=== PATIENT | female | born 1965 | race Caucasian/White ===

== ENCOUNTER → 2016-11-16 | Outpatient (CLI) | payer BC ==
[2016-05-11 11:48] VITALS: BP 130/62
[2016-11-16 08:00] LABS: BASOPHILS # (AUTO) 0.1 X10^3/uL (0.0-0.1); BASOPHILS % (AUTO) 0.7 % (0.2-1.0); CREATININE,URINE 73.87 mg/dL (29-226); EOSINOPHILS # (AUTO) 0.3 x10^3/uL (0.0-0.2); EOSINOPHILS % (AUTO) 3.2 % (0.9-2.9); HEMATOCRIT 43.6 % (36.0-47.0); LYMPHOCYTES # (AUTO) 2.3 X10^3/uL (1.3-2.9); LYMPHOCYTES % (AUTO) 29.1 % (21.0-51.0); MEAN CORPUSCULAR HEMOGLOBIN 29.4 pg (27.0-34.0); MEAN CORPUSCULAR HGB CONC 34.4 g/dL (33.0-35.0); MEAN CORPUSCULAR VOLUME 85.4 fL (80.0-100.0); MONOCYTES # (AUTO) 0.5 x10^3/uL (0.3-0.8); MONOCYTES % (AUTO) 5.9 % (0.0-13.0); NEUTROPHILS # (AUTO) 4.8 x10^3/uL (2.2-4.8); NEUTROPHILS % (AUTO) 61.1 % (42.0-75.0); PLATELET COUNT 218 X10^3/uL (150.0-450.0); RED BLOOD COUNT 5.11 X10^6/uL (3.5-5.4); RED CELL DISTRIBUTION WIDTH 13.6 % (11.6-16.5); WHITE BLOOD COUNT 7.9 X10^3/uL (3.6-10.0)
[2016-11-16 08:18] LABS: ALANINE AMINOTRANSFERASE 20 Units/L (12-78); ALKALINE PHOSPHATASE 60 Units/L (46-116); ASPARTATE AMINO TRANSFERASE 17 Units/L (15-37); BLOOD UREA NITROGEN 11 mg/dL (7-18); CALCIUM 8.6 mg/dL (8.5-10.1); CARBON DIOXIDE 28.1 mmol/L (21-32); CHLORIDE 103 mmol/L (98-107); CHOL/HDL RATIO 5.4 (0.0-5.0); CHOLESTEROL 179 mg/dL (0-200); COR NA(FOR HYPERGLY) 144 mmol/L (136-145); CREATININE 0.61 mg/dL (0.55-1.02); GLUCOSE 206 mg/dL (65-99); HDL CHOLESTEROL 33 mg/dL (40-60); SODIUM 141 mmol/L (136-145); TOTAL PROTEIN 7.5 g/dL (6.4-8.2); TRIGLYCERIDES 221 mg/dL (0-150); eGFR BLACK RACES > 60 (>60); eGFR NON BLACK RACES > 60 (>60)
== END ==
LOC: LAB 07:29
PROVIDERS: ATTEND Nurse Practitioner Family
DX: E11.65 Type 2 diabetes mellitus with hyperglycemia (principal)
CPT/HCPCS: 36415; 80053; 80061; 82043; 83036; 85025

== ENCOUNTER → 2017-02-12 | Outpatient (CLI) | payer BC ==
[2016-05-11 11:48] VITALS: BP 130/62
--- NOTE | 2017-02-18 16:03 | MG ---
HISTORY: SCREENING Comparison: None FINDINGS: Bilateral CC and MLO projections of the right and left breast were obtained. Scattered fibroglandula r tissue is seen to be present. No significant architectural distortion, mass or clustered microcalc ifications can be observed to suggest malignancy. No skin thickening or nipple retraction is appreci ated. No pathological lymphadenopathy can be identified. IMPRESSION: NO RADIOGRAPHIC EVIDENCE OF MALIGNANCY. ACR CATEGORY I - NEGATIVE EXAM. FOLLOW-UP EXAM 1 YEAR. Diagnostic CAD was utilized and reviewed. * 0 (ZERO) - ASSESSMENT INCOMPLETE; ADDITIONAL IMAGING IS NEEDED. * 1/ (ONE) - NEGATIVE. * 2/II (TWO) - BENIGN FINDINGS. * 3/III (THREE) - PROBABLY BENIGN FINDING; SHORT INTERVAL FOLLOW-UP SUGGESTED. * 4/IV (FOUR) - SUSPICIOUS ABNORMALITY; BIOPSY SHOULD BE CONSIDERED. * 5/V - HIGHLY SUSPICIOUS OF MALIGNANCY; BIOPSY SHOULD BE PERFORMED. A NEGATIVE X-RAY REPORT SHOULD NOT DELAY BIOPSY IF A DOMINANT OR CLINICALLY SUSPICIOUS MASS IS PRESENT; 4 TO 8 PERCENT OF CANCERS ARE NOT IDENTIFIED BY X-RAY. A NEGA TIVE REPORT MAY REINFORCE THE CLINICAL IMPRESSION. ADENOSIS AND DENSE BREASTS MAY OBSCURE AN UNDERLY ING NEOPLASM. Reported By:
== END ==
LOC: RAD 09:47
PROVIDERS: ATTEND Nurse Practitioner Family
DX: Z12.31 Encounter for screening mammogram for malignant neoplasm of breast (principal)
CPT/HCPCS: 77067

== ENCOUNTER 2020-01-04 10:01 | Inpatient (IN) ==
[2020-01-04 10:05] VITALS: BMI 27.3
--- NOTE | 2020-01-04 10:13 | DR.FBACK ---
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 Also fever and decreased taste. Chief Complaint:: PT C/O PAIN WHEN SHE SITS AND STANDS , AND PAIN TO TO HER MED BACK THAT RADIATES TO HER LEGS, FEVER OF 101.0 AT HOME , DRY COUGH AND LOSS HER SENCE OF SMELL ..BR COVID-19 Coronavirus risk:travel/contact w/high risk person: Yes Coronavirus symptoms experienced: Fever Reviewed Nurses Notes Review: Yes Source History Provided: Patient Mode of Arrival Mode of Arrival: Wheelchair Timing Onset of Chief Complaint: 12/31/19 Duration Duration: Constant How lon Duration: Days Location Back Pain Location: Right (leg) and BACK Radiation To: Right Severity Severity: Moderate Quality Quality: Aching Context Onset: Spontaneous Circumstance: Spontaneous Modifying Factors Worsened By: Movement Associated Signs and Symptoms Back Pain Symptoms: Fever Numbness: None Weakness: None PMH PMH Past Medical History: Yes Past Medical History: Diabetes Past Surgical History: Yes Surgical History: Hysterectomy Family History History of Family Medical Conditions: Yes Family Medical History: Diabetes Mellitus, Cancer, [place], Heart Failure and Hypertension Social History Does patient currently use any type of tobacco product: No Type of Tobacco Use: None Does any household member use tobacco: No Alcohol Use: None Do you use any recreational Drugs:: No Lives With: Family Lives Where: Home Infectious screening In the last 2 months have you had wt loss of >10#?: NO Have you had fever, night sweats or hemotysis?: No Have you traveled outside the country in the last 6 months?: No Isolation: Droplet ROS Review of Systems Constitutional: Fever and Other (decreased taste) Eyes: No Symptoms Reported ENTM: No Symptoms Reported Respiratoy: No Symptoms Reported Cardiovascular: No Symptoms Reported Gastrointestinal/Abdominal: No Symptoms Reported Genitourinary: No Symptoms Reported Neurological: No Symptoms Reported Musculoskeletal: Back Pain Integumentary: No Symptoms Reported Hematologic/Lymphatic: No Symptoms Reported Endocrine: No Symptoms Reported Psychiatric: Depression All Other Systems: Reviewed and Negative PE Vitals Vital Signs: Temp Pulse Resp BP Pulse Ox 01/04/20 10:30 104 H 17 140/72 94 L 01/04/20 10:15 105 H 20 94 L 01/04/20 10:06 113 H 95 01/04/20 10:02 98.7 F 104 H 20 184/79 98 05/11/16 11:43 130/62 General Limitations: No Limitations General Appearance: Alert and In No Apparent Distress Head Head Exam: Normal Inspection, Atraumatic and Normocephalic Eyes Eye exam: Normal Appearance and EOMI ENT ENT Exam: Normal Exam Chest Chest Inspection: Normal Inspection Respiratory Respiratory Exam: Normal Lung Sounds Bilat; negative Accessory Muscle Use Respiratory Exam: Bilateral: Clear to Auscultation Cardiovascular Cardiovascular Exam: Tachycardia Abdominal Exam Abdominal Exam: Normal Inspection Genitourinary External Exam: Female: Normal External Exam and Deferred : Speculum Exam (Female): Deferred : Bimanual Exam (female): Deferred Extremities Extremities Exam: Full ROM Back Back Exam: Normal Inspection Neurological Neurological Exam: Alert, Oriented X3 and CN II-XII Intact Psychiatric Psychiatric Exam: Depressed Skin Skin Exam: Normal Color ROR Labs Reviewed Result Diagrams: 01/04/20 10:35 01/04/20 10:35 Laboratory: Specimen Type Clean catch urine 01/04/20 10:12 Urine Color Yellow (YELLOW) 01/04/20 10:12 Urine Appearance Clear (CLEAR) 01/04/20 10:12 Urine pH 6.0 (5.0 - 8.0) 01/04/20 10:12 Ur Specific [place] 1.015 (1.000-1.030) 01/04/20 10:12 Urine Protein Negative (NEGATIVE) 01/04/20 10:12 Urine Glucose (UA) 4+ (NEGATIVE) 01/04/20 10:12 Urine Ketones 4+ (NEGATIVE) 01/04/20 10:12 Urine Occult Blood Negative (NEGATIVE) 01/04/20 10:12 Urine Nitrite Negative (NEGATIVE) 01/04/20 10:12 Urine Bilirubin Negative (NEGATIVE) 01/04/20 10:12 Urine Urobilinogen Normal (NORMAL) 01/04/20 10:12 Ur Leukocyte Esterase Negative (NEGATIVE) 01/04/20 10:12 XRAY XRAY Interpreted by: Radiologist X-ray Results: CHEST: no acute pulmonary process Opioid Opioid Risk Tool Total: 0 Total Score Risk Category: Low Risk Copyright: Go RIVERA predicting aberrant behaviors
[2020-01-04 10:25] LABS: BILIRUBIN,URINE NEGATIVE (NEGATIVE); BLOOD/HEMOGLOBIN,URINE NEGATIVE (NEGATIVE); GLUCOSE, URINE 4+ (NEGATIVE); KETONES,URINE 4+ (NEGATIVE); LEUKOCYTE ESTERASE ,URINE NEGATIVE (NEGATIVE); NITRITES,URINE NEGATIVE (NEGATIVE); PROTEIN,URINE NEGATIVE (NEGATIVE); UROBILINOGEN,URINE NORMAL (NORMAL)
[2020-01-04] MEDS ORDERED: TORADOL 30 MG VIAL IVP ONE (10:32)
[2020-01-04 10:34] LABS: APPEARANCE,URINE CLEAR (CLEAR); COLOR,URINE YELLOW (YELLOW)
--- NOTE | 2020-01-04 10:38 | RAD ---
HISTORYFEVER, DRY COUGH, BACK PAINSTUDYCHEST, 1 VIEWCOMPARISONNoneTECHNIQUEAP view of the chestFINDINGSCardiac and mediastinal contours appear normal. The lungs are clear. No pleural effusion or pneumothorax.IMPRESSIONNo acute pulmonary process.Electronically signed by: Gumaro Mantilla (Jan 04, 2020 10:38:31)
[2020-01-04] MEDS ORDERED: TORADOL 30 MG VIAL ONE (10:39)
--- NOTE | 2020-01-04 10:48 | DR.FBACK ---
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 Chief Complaint:: PT C/O PAIN WHEN SHE SITS AND STANDS , AND PAIN TO TO HER MED BACK THAT RADIATES TO HER LEGS, FEVER OF 101.0 AT HOME , DRY COUGH AND LOSS HER SENCE OF SMELL ..BR COVID-19 Coronavirus risk:travel/contact w/high risk person: Yes Has patient experienced Coronavirus symptoms: Yes Coronavirus symptoms experienced: Fever Source History Provided: Patient Mode of Arrival Mode of Arrival: Wheelchair Timing Onset of Chief Complaint: 12/31/19 Duration Duration: Constant How lon Duration: Days Location Back Pain Location: Right (leg) and BACK Context Circumstance: Spontaneous Associated Signs and Symptoms Back Pain Symptoms: Fever Numbness: None Weakness: None PMH PMH Past Medical History: Yes Past Medical History: Diabetes Past Surgical History: Yes Surgical History: Hysterectomy Family History History of Family Medical Conditions: Yes Family Medical History: Diabetes Mellitus, Cancer, [place], Heart Failure and Hypertension Social History Does patient currently use any type of tobacco product: No Type of Tobacco Use: None Does any household member use tobacco: No Alcohol Use: None Do you use any recreational Drugs:: No Lives With: Family Lives Where: Home Travel Risk Coronavirus risk:travel/contact w/high risk person: Yes Has patient experienced Coronavirus symptoms: Yes Coronavirus symptoms experienced: Fever Infectious screening In the last 2 months have you had wt loss of >10#?: NO Have you had fever, night sweats or hemotysis?: No Have you traveled outside the country in the last 6 months?: No Isolation: Droplet PE Vitals Vital Signs: Temp Pulse Resp BP Pulse Ox 01/04/20 12:30 94 H 21 120/64 98 01/04/20 12:15 93 H 18 96 01/04/20 12:00 93 H 13 120/60 95 01/04/20 11:45 96 H 21 93 L 01/04/20 11:30 100 H 20 110/53 95 01/04/20 11:15 95 H 19 94 L 01/04/20 11:00 96 H 20 124/58 93 L 01/04/20 10:45 97 H 23 94 L 01/04/20 10:44 20 01/04/20 10:30 104 H 17 140/72 94 L 01/04/20 10:15 105 H 20 94 L 01/04/20 10:06 113 H 95 01/04/20 10:02 98.7 F 104 H 20 184/79 98 05/11/16 11:43 130/62 ROR Labs Reviewed Result Diagrams: 01/04/20 10:35 01/04/20 10:35 Laboratory: WBC 4.0 X10^3/uL (3.6-10.0) 01/04/20 10:35 RBC 5.08 X10^6/uL (3.5-5.4) 01/04/20 10:35 Hgb 14.9 g/dL (12.0-16.0) 01/04/20 10:35 Hct 44.4 % (36.0-47.0) 01/04/20 10:35 MCV 87.4 fL (80.0-100.0) 01/04/20 10:35 MCH 29.3 pg (27.0-34.0) 01/04/20 10:35 MCHC 33.6 g/dL (33.0-35.0) 01/04/20 10:35 RDW 13.5 % (11.6-16.5) 01/04/20 10:35 Plt Count 153 X10^3/uL (150.0-450.0) 01/04/20 10:35 MPV 8.9 fL (7.4-11.0) 01/04/20 10:35 Neut % (Auto) 67.3 % (42.0-75.0) 01/04/20 10:35 Lymph % (Auto) 23.2 % (21.0-51.0) 01/04/20 10:35 [place] % (Auto) 8.8 % (0.0-13.0) 01/04/20 10:35 Eos % (Auto) 0.3 % (0.9-2.9) L 01/04/20 10:35 Baso % (Auto) 0.4 % (0.2-1.0) 01/04/20 10:35 Neut # (Auto) 2.7 x10^3/uL (2.2-4.8) 01/04/20 10:35 Lymph # (Auto) 0.9 X10^3/uL (1.3-2.9) L 01/04/20 10:35 [place] # (Auto) 0.4 x10^3/uL (0.3-0.8) 01/04/20 10:35 Eos # (Auto) 0.0 x10^3/uL (0.0-0.2) 01/04/20 10:35 Baso # (Auto) 0.0 X10^3/uL (0.0-0.1) 01/04/20 10:35 Absolute Nucleated RBC 0.2 /100WBC 01/04/20 10:35 APTT 31.9 SECONDS (22.9-36.5) 01/04/20 10:35 PTT Comment - 01/04/20 10:35 Sodium 135 mmol/L (136-145) L 01/04/20 10:35 Corrected Sodium 140 mmol/L (136-145) 01/04/20 10:35 Potassium 4.0 mmol/L (3.5-5.1) 01/04/20 10:35 Chloride 99 mmol/L (98-107) 01/04/20 10:35 Carbon Dioxide 17.5 mmol/L (21-32) L 01/04/20 10:35 BUN 7 mg/dL (7-18) 01/04/20 10:35 Creatinine 0.63 mg/dL (0.55-1.02) 01/04/20 10:35 Est GFR (MDRD) Af Amer > 60 (>60) 01/04/20 10:35 Est GFR (MDRD) Non-Af > 60 (>60) 01/04/20 10:35 Glucose 303 mg/dL (65-99) H 01/04/20 10:35 Calcium 8.7 mg/dL (8.5-10.1) 01/04/20 10:35 Creatine Kinase 21 Units/L (26-192) L 01/04/20 10:35 CK-MB (CK-2) < 1.0 ng/mL (0-4.0) 01/04/20 10:35 CK/CKMB % Calc 4.8 % (<4) 01/04/20 10:35 Troponin I < 0.02 ng/mL (0-1.5) 01/04/20 10:35 Specimen Type Clean catch urine 01/04/20 10:12 Urine Color Yellow (YELLOW) 01/04/20 10:12 Urine Appearance Clear (CLEAR) 01/04/20 10:12 Urine pH 6.0 (5.0 - 8.0) 01/04/20 10:12 Ur Specific [place] 1.015 (1.000-1.030) 01/04/20 10:12 Urine Protein Negative (NEGATIVE) 01/04/20 10:12 Urine Glucose (UA) 4+ (NEGATIVE) 01/04/20 10:12 Urine Ketones 4+ (NEGATIVE) 01/04/20 10:12 Urine Occult Blood Negative (NEGATIVE) 01/04/20 10:12 Urine Nitrite Negative (NEGATIVE) 01/04/20 10:12 Urine Bilirubin Negative (NEGATIVE) 01/04/20 10:12 Urine Urobilinogen Normal (NORMAL) 01/04/20 10:12 Ur Leukocyte Esterase Negative (NEGATIVE) 01/04/20 10:12 Acetone, Semi-Quant Negative (NEGATIVE) 01/04/20 10:35 EKG Rate: 99 [place]: Normal Rhythm: NSR Block: None Hypertrophy: None ST: Nonsp Opioid Opioid Risk Tool Age (Jozef box if 16-45): No History of Preadolescent Sexual Abuse: No Total: 0 Total Score Risk Category: Low Risk Copyright: Go RIVERA predicting aberrant behaviors Diagnosis Discharge Problem: Acute viral syndrome, Hyperglycemia Instructions Instructions: Hyperglycemia Viral Illness, Adult Forms: Precautions for COVID19 Patient Portal Social Distancing
[2020-01-04 10:49] LABS: BASOPHILS % (AUTO) 0.4 % (0.2-1.0); EOSINOPHILS % (AUTO) 0.3 % (0.9-2.9); HEMATOCRIT 44.4 % (36.0-47.0); HEMOGLOBIN 14.9 g/dL (12.0-16.0); LYMPHOCYTES # (AUTO) 0.9 X10^3/uL (1.3-2.9); LYMPHOCYTES % (AUTO) 23.2 % (21.0-51.0); MEAN CORPUSCULAR HEMOGLOBIN 29.3 pg (27.0-34.0); MEAN CORPUSCULAR HGB CONC 33.6 g/dL (33.0-35.0); MEAN CORPUSCULAR VOLUME 87.4 fL (80.0-100.0); MEAN PLATELET VOLUME 8.9 fL (7.4-11.0); MONOCYTES # (AUTO) 0.4 x10^3/uL (0.3-0.8); MONOCYTES % (AUTO) 8.8 % (0.0-13.0); NEUTROPHILS # (AUTO) 2.7 x10^3/uL (2.2-4.8); NEUTROPHILS % (AUTO) 67.3 % (42.0-75.0); PLATELET COUNT 153 X10^3/uL (150.0-450.0); RED BLOOD COUNT 5.08 X10^6/uL (3.5-5.4); RED CELL DISTRIBUTION WIDTH 13.5 % (11.6-16.5)
[2020-01-04 10:53] LABS: BLOOD UREA NITROGEN 7 mg/dL (7-18); CALCIUM 8.7 mg/dL (8.5-10.1); CARBON DIOXIDE 17.5 mmol/L (21-32); CHLORIDE 99 mmol/L (98-107); COR NA(FOR HYPERGLY) 140 mmol/L (136-145); CREATININE 0.63 mg/dL (0.55-1.02); SODIUM 135 mmol/L (136-145); eGFR NON BLACK RACES > 60 (>60)
[2020-01-04 11:11] LABS: CKMB % 4.8 % (<4); CREATINE KINASE 21 Units/L (26-192); CREATINE KINASE MB < 1.0 ng/mL (0-4.0); TROPONIN I < 0.02 ng/mL (0-1.5)
[2020-01-04] MEDS ORDERED: NS 500 ML IV 1,000 ML IV ONE (11:31)
[2020-01-04] MEDS ORDERED: NS 1000 ML 1,000 ML ONE (11:46)
[2020-01-04] MEDS ORDERED: DEMEROL INJ IM ONE (23:20)
--- NOTE | 2020-01-04 23:20 | DR.FBACK ---
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 Chief Complaint:: PT C/O PAIN WHEN SHE SITS AND STANDS , AND PAIN TO TO HER MED BACK THAT RADIATES TO HER LEGS, FEVER OF 101.0 AT HOME , DRY COUGH AND LOSS HER SENCE OF SMELL ..BR COVID-19 Coronavirus risk:travel/contact w/high risk person: Yes Has patient experienced Coronavirus symptoms: Yes Coronavirus symptoms experienced: Fever Source History Provided: Patient Mode of Arrival Mode of Arrival: Wheelchair Timing Onset of Chief Complaint: 12/31/19 Duration Duration: Constant How lon Duration: Days Location Back Pain Location: Right (leg) and BACK Context Circumstance: Spontaneous Associated Signs and Symptoms Back Pain Symptoms: Fever Numbness: None Weakness: None PMH PMH Past Medical History: Yes Past Medical History: Diabetes Past Surgical History: Yes Surgical History: Hysterectomy Family History History of Family Medical Conditions: Yes Family Medical History: Diabetes Mellitus, Cancer, [place], Heart Failure and Hypertension Social History Does patient currently use any type of tobacco product: No Type of Tobacco Use: None Does any household member use tobacco: No Alcohol Use: None Do you use any recreational Drugs:: No Lives With: Family Lives Where: Home Travel Risk Coronavirus risk:travel/contact w/high risk person: Yes Has patient experienced Coronavirus symptoms: Yes Coronavirus symptoms experienced: Fever Infectious screening In the last 2 months have you had wt loss of >10#?: NO Have you had fever, night sweats or hemotysis?: No Have you traveled outside the country in the last 6 months?: No Isolation: Droplet PE Vitals Vital Signs: Temp Pulse Resp BP Pulse Ox 01/04/20 23:30 110 H 22 138/64 99 01/04/20 23:28 20 01/04/20 12:30 94 H 21 120/64 98 01/04/20 12:15 93 H 18 96 01/04/20 12:00 93 H 13 120/60 95 01/04/20 11:45 96 H 21 93 L 01/04/20 11:30 100 H 20 110/53 95 01/04/20 11:15 95 H 19 94 L 01/04/20 11:00 96 H 20 124/58 93 L 01/04/20 10:45 97 H 23 94 L 01/04/20 10:44 20 01/04/20 10:30 104 H 17 140/72 94 L 01/04/20 10:15 105 H 20 94 L 01/04/20 10:06 113 H 95 01/04/20 10:02 98.7 F 104 H 20 184/79 98 05/11/16 11:43 130/62 COURSE Treatment Treatment: 2315: patient returns to ER with complaint of Low back pain radiating to right leg. No numbness. Had relief earlier when seen in ER but pain returned. Will get CT scan abdo/pelvis. 0045: case discussed with Dr. Lance will admit to treat for Covid 19 Pneumonia and DKA ROR Labs Reviewed Result Diagrams: 01/04/20 23:38 01/04/20 23:38 Laboratory: WBC 5.3 X10^3/uL (3.6-10.0) 01/04/20 23:38 RBC 5.07 X10^6/uL (3.5-5.4) 01/04/20 23:38 Hgb 15.1 g/dL (12.0-16.0) 01/04/20 23:38 Hct 45.5 % (36.0-47.0) 01/04/20 23:38 MCV 89.7 fL (80.0-100.0) 01/04/20 23:38 MCH 29.8 pg (27.0-34.0) 01/04/20 23:38 MCHC 33.2 g/dL (33.0-35.0) 01/04/20 23:38 RDW 14.0 % (11.6-16.5) 01/04/20 23:38 Plt Count 168 X10^3/uL (150.0-450.0) 01/04/20 23:38 MPV 9.6 fL (7.4-11.0) 01/04/20 23:38 Neut % (Auto) 83.3 % (42.0-75.0) H 01/04/20 23:38 Lymph % (Auto) 11.6 % (21.0-51.0) L 01/04/20 23:38 [place] % (Auto) 4.9 % (0.0-13.0) 01/04/20 23:38 Eos % (Auto) 0.0 % (0.9-2.9) L 01/04/20 23:38 Baso % (Auto) 0.2 % (0.2-1.0) 01/04/20 23:38 Neut # (Auto) 4.4 x10^3/uL (2.2-4.8) 01/04/20 23:38 Lymph # (Auto) 0.6 X10^3/uL (1.3-2.9) L 01/04/20 23:38 [place] # (Auto) 0.3 x10^3/uL (0.3-0.8) 01/04/20 23:38 Eos # (Auto) 0.0 x10^3/uL (0.0-0.2) 01/04/20 23:38 Baso # (Auto) 0.0 X10^3/uL (0.0-0.1) 01/04/20 23:38 Absolute Nucleated RBC 0.1 /100WBC 01/04/20 23:38 APTT 31.9 SECONDS (22.9-36.5) 01/04/20 10:35 PTT Comment - 01/04/20 10:35 Sodium 135 mmol/L (136-145) L 01/04/20 23:38 Corrected Sodium 140 mmol/L (136-145) 01/04/20 23:38 Potassium 4.7 mmol/L (3.5-5.1) 01/04/20 23:38 Chloride 99 mmol/L (98-107) 01/04/20 23:38 Carbon Dioxide 15.1 mmol/L (21-32) L 01/04/20 23:38 BUN 12 mg/dL (7-18) 01/04/20 23:38 Creatinine 0.79 mg/dL (0.55-1.02) 01/04/20 23:38 Est GFR (MDRD) Af Amer > 60 (>60) 01/04/20 23:38 Est GFR (MDRD) Non-Af > 60 (>60) 01/04/20 23:38 Glucose 311 mg/dL (65-99) H 01/04/20 23:38 Calcium 8.7 mg/dL (8.5-10.1) 01/04/20 23:38 Creatine Kinase 21 Units/L (26-192) L 01/04/20 10:35 CK-MB (CK-2) < 1.0 ng/mL (0-4.0) 01/04/20 10:35 CK/CKMB % Calc 4.8 % (<4) 01/04/20 10:35 Troponin I < 0.02 ng/mL (0-1.5) 01/05/20 00:01 C-Reactive Protein 56.10 mg/L (0-3.0) H 01/04/20 23:38 Specimen Type Clean catch urine 01/04/20 10:12 Urine Color Yellow (YELLOW) 01/04/20 10:12 Urine Appearance Clear (CLEAR) 01/04/20 10:12 Urine pH 6.0 (5.0 - 8.0) 01/04/20 10:12 Ur Specific [place] 1.015 (1.000-1.030) 01/04/20 10:12 Urine Protein Negative (NEGATIVE) 01/04/20 10:12 Urine Glucose (UA) 4+ (NEGATIVE) 01/04/20 10:12 Urine Ketones 4+ (NEGATIVE) 01/04/20 10:12 Urine Occult Blood Negative (NEGATIVE) 01/04/20 10:12 Urine Nitrite Negative (NEGATIVE) 01/04/20 10:12 Urine Bilirubin Negative (NEGATIVE) 01/04/20 10:12 Urine Urobilinogen Normal (NORMAL) 01/04/20 10:12 Ur Leukocyte Esterase Negative (NEGATIVE) 01/04/20 10:12 Acetone, Semi-Quant Small (NEGATIVE) H 01/05/20 00:01 XRAY XRAY Interpreted by: Radiologist X-ray Results: CT Abdo/pelvis: lung base with Covid 19 pneumonia apppearance Opioid Opioid Risk Tool Age (Jozef box if 16-45): No History of Preadolescent Sexual Abuse: No Total: 0 Total Score Risk Category: Low Risk Copyright: Go RIVERA predicting aberrant behaviors Diagnosis Discharge Problem: Acute viral syndrome, Hyperglycemia Instructions Instructions: Hyperglycemia Viral Illness, Adult Forms: Precautions for COVID19 Patient Portal Social Distancing
[2020-01-04] MEDS ORDERED: DEMEROL INJ ONE (23:25)
[2020-01-04] MEDS ORDERED: NS 500 ML IV 500 ML IV ONE (23:39)
[2020-01-04 23:51] LABS: BASOPHILS % (AUTO) 0.2 % (0.2-1.0); HEMATOCRIT 45.5 % (36.0-47.0); HEMOGLOBIN 15.1 g/dL (12.0-16.0); LYMPHOCYTES # (AUTO) 0.6 X10^3/uL (1.3-2.9); LYMPHOCYTES % (AUTO) 11.6 % (21.0-51.0); MEAN CORPUSCULAR HEMOGLOBIN 29.8 pg (27.0-34.0); MEAN CORPUSCULAR HGB CONC 33.2 g/dL (33.0-35.0); MEAN CORPUSCULAR VOLUME 89.7 fL (80.0-100.0); MEAN PLATELET VOLUME 9.6 fL (7.4-11.0); MONOCYTES # (AUTO) 0.3 x10^3/uL (0.3-0.8); MONOCYTES % (AUTO) 4.9 % (0.0-13.0); NEUTROPHILS # (AUTO) 4.4 x10^3/uL (2.2-4.8); NEUTROPHILS % (AUTO) 83.3 % (42.0-75.0); PLATELET COUNT 168 X10^3/uL (150.0-450.0); RED BLOOD COUNT 5.07 X10^6/uL (3.5-5.4); WHITE BLOOD COUNT 5.3 X10^3/uL (3.6-10.0)
[2020-01-04 23:54] LABS: BLOOD UREA NITROGEN 12 mg/dL (7-18); CALCIUM 8.7 mg/dL (8.5-10.1); CARBON DIOXIDE 15.1 mmol/L (21-32); CHLORIDE 99 mmol/L (98-107); COR NA(FOR HYPERGLY) 140 mmol/L (136-145); CREATININE 0.79 mg/dL (0.55-1.02); SODIUM 135 mmol/L (136-145); eGFR NON BLACK RACES > 60 (>60)
[2020-01-05] MEDS ORDERED: NS 1000 ML 1,000 ML IV ONE (00:06)
[2020-01-05] MEDS ORDERED: HumuLIN R IV ONE ×2 (00:07→01:22)
[2020-01-05] MEDS ORDERED: NS 1000 ML 1,000 ML ONE (00:11)
[2020-01-05] MEDS ORDERED: HumuLIN R ONE ×4 (00:12→11:59)
--- NOTE | 2020-01-05 00:19 | CT ---
STUDY: CT ABDOMEN AND PELVIS WITHOUT IV CONTRASTCOMPARISON: NoneTECHNIQUE: Axial images were obtained of the abdomen and pelvis without IV contrast. Sagittal and coronal reformatted images were provided. All images were reviewed in a variety of windows and levels.RADIATION REDUCTION TECHNIQUE: Automated exposure control, adjustment of the mA or kV according to patient size, or iterative reconstruction techniques were used.HISTORY: PT C/O PAIN WHEN SHE SITS AND STANDS, AND PAIN TO TO HER MED BACK THAT RADIATES TO HER LEGS, FEVER OF 101.0 AT HOME, DRY COUGH AND LOSS HER SENCE OF SMELLFINDINGS:Please note that lack of IV contrast does limit evaluation of the soft tissues and vascular detail.The visualized lower lung zones demonstrates scattered foci of peripheral based ground-glass opacities in the right lower lung zone which has imaging features that are commonly seen in patients with COVID-19. the heart size is within normal limits. There is no evidence of a pericardial effusion.The liver, spleen, pancreas, adrenal glands, and kidneys are grossly unremarkable. Gallstones are noted. The patient is status post hysterectomy.There is no evidence of stones or signs of obstructive uropathy.The stomach, small bowel, and colon are grossly unremarkable. A few scattered diverticula are seen without evidence of diverticulitis. There are no inflammatory changes in the right lower quadrant to suggest secondary signs of acute appendicitis. The appendix is not visualized on this exam.There is no evidence of retroperitoneal or mesenteric lymphadenopathy.The visualized bones demonstrate degenerative changes. There are no concerning lytic or blastic lesions identified.IMPRESSION:1. The above findings demonstrate COMMON CT imaging features of COVID-19 pneumonia in the visualized portions of the lower lung zones. However, differential diagnosis should include, but is not limited to, influenza pneumonia, organizing pneumonia, or possible drug toxicity. Clinical correlation with laboratory viral testing may be obtained as clinically indicated. Reference: Greene et al. Radiology. . Gallstones are noted3. The appendix is not visualized. There are no secondary signs of acute appendicitis.Electronically signed by: Martin Rivas (Jan 05, 2020 00:17:54)
[2020-01-05] MEDS ORDERED: ZOFRAN INJ 4 MG VIAL ONE (00:31)
[2020-01-05] MEDS ORDERED: ZOFRAN INJ 4 MG VIAL IVP ONE (00:41)
[2020-01-05] MEDS ORDERED: HumuLIN R SC PRN (00:58)
[2020-01-05] MEDS ORDERED: LOVENOX INJ 30 MG SYR SC SCH (01:00)
[2020-01-05] MEDS ORDERED: DECADRON TAB PO SCH (01:00)
[2020-01-05] MEDS ORDERED: HumuLIN R SUBCUT PRN (01:26)
[2020-01-05] MEDS ORDERED: LOVENOX INJ 30 MG SYR SC ONE (02:40)
[2020-01-05] MEDS ORDERED: DECADRON TAB ONE (02:40)
[2020-01-05] MEDS ORDERED: NS 100 ML IV 100 ML IV ONE (02:44)
[2020-01-05] MEDS: NS 1000 ML 1,000 ML IV SCH (02:52)
[2020-01-05] MEDS: ASCORBIC ACID INJ MULTI-DOSE VIAL 1,500 MG in NS 100 ML IV 100 ML IV SCH ×4 (02:55→21:20)
[2020-01-05] MEDS: VITAMIN D (1.25MG) PO SCH ×2 (03:25→10:09)
[2020-01-05 06:08] LABS: ALANINE AMINOTRANSFERASE 20 Units/L (12-78); ALBUMIN 3.4 g/dL (3.4-5.0); ALKALINE PHOSPHATASE 85 Units/L (46-116); ASPARTATE AMINO TRANSFERASE 25 Units/L (15-37); BLOOD UREA NITROGEN 12 mg/dL (7-18); CALCIUM 8.3 mg/dL (8.5-10.1); CHLORIDE 101 mmol/L (98-107); COR NA(FOR HYPERGLY) 137 mmol/L (136-145); CREATININE 0.66 mg/dL (0.55-1.02); SODIUM 134 mmol/L (136-145); TOTAL PROTEIN 7.4 g/dL (6.4-8.2); eGFR NON BLACK RACES > 60 (>60)
[2020-01-05 06:14] LABS: BASOPHILS % (AUTO) 0.2 % (0.2-1.0); HEMATOCRIT 42.4 % (36.0-47.0); HEMOGLOBIN 14.4 g/dL (12.0-16.0); LYMPHOCYTES # (AUTO) 0.7 X10^3/uL (1.3-2.9); LYMPHOCYTES % (AUTO) 13.4 % (21.0-51.0); MEAN CORPUSCULAR HEMOGLOBIN 29.8 pg (27.0-34.0); MEAN CORPUSCULAR VOLUME 87.7 fL (80.0-100.0); MONOCYTES # (AUTO) 0.2 x10^3/uL (0.3-0.8); MONOCYTES % (AUTO) 4.8 % (0.0-13.0); NEUTROPHILS # (AUTO) 4.2 x10^3/uL (2.2-4.8); NEUTROPHILS % (AUTO) 81.6 % (42.0-75.0); PLATELET COUNT 153 X10^3/uL (150.0-450.0); RED BLOOD COUNT 4.83 X10^6/uL (3.5-5.4); RED CELL DISTRIBUTION WIDTH 13.6 % (11.6-16.5); WHITE BLOOD COUNT 5.1 X10^3/uL (3.6-10.0)
[2020-01-05] MEDS ORDERED: VITAMIN A PO SCH (09:00)
[2020-01-05] MEDS ORDERED: REMDESIVIR (INVESTIGATIONAL DRUG GS-5734) 200 MG in NS 250 ML IV 250 ML IV NR (09:00)
[2020-01-05 09:14] LABS: ABG BASE EXCESS -15.5 mmol/L (-2.0-2.0); ABG HCO3 10.6 mmol/L (22-26)
[2020-01-05] MEDS: TRICOR TAB 160 MG PO SCH (10:08)
[2020-01-05] MEDS: PLAQUENIL PO SCH ×2 (10:08→21:20)
[2020-01-05] MEDS: ZINC SULFATE PO SCH ×2 (10:09→21:20)
[2020-01-05] MEDS: LOVENOX INJ 30 MG SYR SC SCH ×2 (10:24→21:20)
[2020-01-05 11:26] LABS: ALANINE AMINOTRANSFERASE 20 Units/L (12-78); ALBUMIN 3.6 g/dL (3.4-5.0); ALKALINE PHOSPHATASE 92 Units/L (46-116); ASPARTATE AMINO TRANSFERASE 23 Units/L (15-37); BLOOD UREA NITROGEN 12 mg/dL (7-18); CALCIUM 8.4 mg/dL (8.5-10.1); CARBON DIOXIDE 17.9 mmol/L (21-32); CHLORIDE 101 mmol/L (98-107); COR NA(FOR HYPERGLY) 137 mmol/L (136-145); CREATININE 0.81 mg/dL (0.55-1.02); SODIUM 133 mmol/L (136-145); TOTAL PROTEIN 7.9 g/dL (6.4-8.2); eGFR NON BLACK RACES > 60 (>60)
[2020-01-05] MEDS: ZOSYN VIAL 4.5 GRAMS 4.5 G in NS 100 ML IV + SPIKE MINIBAG* 100 ML IV SCH ×4 (12:55→21:45)
[2020-01-05] MEDS: ZITHROMAX INJ 500 MG VIAL 500 MG in NS 250 ML IV 250 ML IV SCH (12:56)
--- NOTE | 2020-01-05 18:01 | DR.H&P ---
H&P - History & Physical for Day of: H&P Date: 01/04/20 - Chief Complaint Chief Complaint: FEVER, BACK PAIN, LOSS OF SENSE OF TASTE, FATIGUE - History of Present Illness History of Present Illness: PT IS 54 WF ER ADMISSION AFTER COMPLAINING OF INTRACTABLE LOWER BACK PAIN. PT STATES SHE HAS HAD FEVER A HOME 101. PT WAS CONCERNED ABOUT COVID EXPOSURE LAST SATURDAY AND STARTED Z PACK ON SATURDAY. PT CO SHE THOUGHT SHE HAD KIDNEY STONE. PT HAS PMH OF HTN, CAD, DM. PT HAD PNEUMONIA ON ABD CT AND COVID POSITIVE WITH DKA DX FROM ER. PT ADMITTED TO ICU FOR TREATMENT OF ACUTE ILLNESS. - Past Medical History Past Medical History: Anxiety, Coronary Artery Disease, Diabetes, Hypertension, Kidney Stones - Past Surgical History Surgical History: Angioplasty/Stents, Hysterectomy - Family History Family Medical History: Diabetes Mellitus, Cancer, [place] - Social History Does patient currently use any type of tobacco product: No Have you used tobacco products in the last 12 months: No Type of Tobacco Use: None Does any household member use tobacco: No Alcohol Use: None Drug Use: None - Medications Home Medications: Sulfa (Sulfonamide Antibiotics) [SULFA] Allergy (Verified 01/04/20 10:05) CONTINUE taking the following medications aspirin [Aspir-81] 81 mg PO DAILY 01/05/20 [History] azithromycin 250 mg PO DAILY 01/05/20 [History] dapagliflozin [Farxiga] 10 mg PO DAILY 01/05/20 [History] dexamethasone 6 mg PO BID 01/05/20 [History] diazepam 5 mg PO DAILY PRN 01/05/20 [History] fish,bora,flax oils-om3,6,9no1 [Price 3-6-9] 1 cap PO DAILY 01/05/20 [History] metformin 10,000 mg PO BID 01/05/20 [History] metoprolol succinate 12.5 mg PO DAILY 01/05/20 [History] omeprazole 20 mg PO DAILY 01/05/20 [History] - Review of Systems Constitutional: Weakness, Malaise Eyes: No Symptoms Reported ENT: No Symptoms Reported Respiratory: SOB with Excertion Cardiovascular: Chest Pain Gastrointestinal: Abdominal Pain Genitourinary: Frequency Musculoskeletal: Back Pain Skin: No Symptoms Reported Neurological: No Symptoms Reported - Physical Exam Vital Signs: Temperature 98.4 F Pulse Rate [Apical] 101 Pulse Rate 86 Respiratory Rate 20 Blood Pressure [Right Arm] 116/64 Blood Pressure 127/60 O2 Sat by Pulse Oximetry 99 Oriented: Normal Eyes: Normal Ear: Normal Nose: Normal Throat: Dry Respiratory: RLL Diminished Cardiovascular: Normal. negative: Edema : Normal Auscultation: Bowel Sounds: Normal Palpation: Normal Tenderness: Normal Skin: Decreased Turgur Musculoskeletal: Back:Thoracic, Back:Lumbar Psychiatric: Anxiety Affect: Anxious Speech Pattern: Clear, Appropriate - Assessment/Plan (1) Pneumonia due to 2019 novel coronavirus Status: Acute Plan: ADMIT ICU. INSULIN, BS PER PROTOCOL. AM ACETONE, REPEAT AM LABS. EKG, SUPPLEMENTAL O2, REMDESIVIR, BLOOD CULTURES. IV HYDRATION, STRICT I& OS. VERIFY HOME MEDICATION, CONVALESCENT PLASMA, ZITHROMAX AND ZOSYN, AM ABG (2) DKA (diabetic ketoacidoses) Status: Acute (3) CAD (coronary artery disease) Status: Acute - Allergies Allergies/Adverse Reactions: Allergies Allergy/AdvReac Type Severity Reaction Status Date / Time Sulfa (Sulfonamide Allergy Verified 01/04/20 10:05 Antibiotics) [SULFA]
[2020-01-05 18:22] LABS: BILIRUBIN,URINE NEGATIVE (NEGATIVE); BLOOD/HEMOGLOBIN,URINE NEGATIVE (NEGATIVE); GLUCOSE, URINE 4+ (NEGATIVE); KETONES,URINE 4+ (NEGATIVE); LEUKOCYTE ESTERASE ,URINE NEGATIVE (NEGATIVE); NITRITES,URINE NEGATIVE (NEGATIVE); PROTEIN,URINE 1+ (NEGATIVE); UROBILINOGEN,URINE NORMAL (NORMAL)
[2020-01-05 18:40] LABS: APPEARANCE,URINE CLEAR (CLEAR); COLOR,URINE YELLOW (YELLOW)
[2020-01-05 18:41] LABS: BACTERIA,URINE NEGATIVE /HPF (NEGATIVE); RBC,URINE NONE SEEN /HPF (0-3); SQUAMOUS EPITHELIAL CELL,UR RARE /HPF (NEGATIVE)
[2020-01-05] MEDS ORDERED: SNACK - Diabetic Appropriate PO SCH ×2 (20:00)
[2020-01-05] MEDS: SNACK - Diabetic Appropriate PO SCH (22:22)
[2020-01-06] MEDS ORDERED: NORCO 5/325 MG TAB PO PRN (00:08)
[2020-01-06] MEDS ORDERED: NORCO 5/325 MG TAB ONE (00:13)
[2020-01-06] MEDS: NS 1000 ML 1,000 ML IV SCH (00:42)
[2020-01-06] MEDS: ASCORBIC ACID INJ MULTI-DOSE VIAL 1,500 MG in NS 100 ML IV 100 ML IV SCH ×4 (02:03→20:25)
[2020-01-06 05:01] LABS: BASOPHILS % (AUTO) 0.3 % (0.2-1.0); EOSINOPHILS % (AUTO) 0.1 % (0.9-2.9); HEMATOCRIT 39.7 % (36.0-47.0); HEMOGLOBIN 13.4 g/dL (12.0-16.0); LYMPHOCYTES # (AUTO) 1.2 X10^3/uL (1.3-2.9); LYMPHOCYTES % (AUTO) 23.7 % (21.0-51.0); MEAN CORPUSCULAR HEMOGLOBIN 29.3 pg (27.0-34.0); MEAN CORPUSCULAR HGB CONC 33.7 g/dL (33.0-35.0); MEAN PLATELET VOLUME 9.8 fL (7.4-11.0); MONOCYTES # (AUTO) 0.4 x10^3/uL (0.3-0.8); MONOCYTES % (AUTO) 6.9 % (0.0-13.0); NEUTROPHILS # (AUTO) 3.5 x10^3/uL (2.2-4.8); PLATELET COUNT 170 X10^3/uL (150.0-450.0); RED BLOOD COUNT 4.57 X10^6/uL (3.5-5.4); RED CELL DISTRIBUTION WIDTH 13.9 % (11.6-16.5); WHITE BLOOD COUNT 5.1 X10^3/uL (3.6-10.0)
[2020-01-06 05:08] LABS: ALANINE AMINOTRANSFERASE 16 Units/L (12-78); ALKALINE PHOSPHATASE 75 Units/L (46-116); ASPARTATE AMINO TRANSFERASE 18 Units/L (15-37); BLOOD UREA NITROGEN 12 mg/dL (7-18); CALCIUM 7.9 mg/dL (8.5-10.1); CARBON DIOXIDE 21.2 mmol/L (21-32); CHLORIDE 104 mmol/L (98-107); COR CA(FOR HYPOALB) 8.7 mg/dL (8.5-10.1); COR NA(FOR HYPERGLY) 138 mmol/L (136-145); CREATININE 0.63 mg/dL (0.55-1.02); SODIUM 136 mmol/L (136-145); TOTAL PROTEIN 6.4 g/dL (6.4-8.2); eGFR NON BLACK RACES > 60 (>60)
[2020-01-06] MEDS: ZOSYN VIAL 4.5 GRAMS 4.5 G in NS 100 ML IV + SPIKE MINIBAG* 100 ML IV SCH ×3 (06:35→21:35)
--- NOTE | 2020-01-06 09:17 | RAD ---
HISTORYFOLLOW-UP PNEUMONIA, COVID-19STUDYCHEST AP [id number]/31/2020FINDINGSThe heart is within normal limits in size. The robert are normal. The lungs are well inflated. There is a question of an early right basilar lung infiltrate representing a change from the prior examination. Follow-up of this area is recommended. There is also a question of some widening of the upper mediastinum. Upright PA and lateral chest examination is recommended for further evaluation. This finding persists, CT chest with contrast may be required. No pleural effusions are identified. Bony thorax is unremarkable.IMPRESSIONSuggestion of interval development of a small right basilar lung infiltrate since the prior examinationQuestion widening of the upper mediastinum. See discussion and recommendation as aboveElectronically signed by: EZEQUIEL CM (Jan 06, 2020 09:16:49)
[2020-01-06 10:01] LABS: ABG HCO3 19.5 mmol/L (22-26)
[2020-01-06] MEDS: DECADRON TAB PO SCH (10:56)
[2020-01-06] MEDS: PLAQUENIL PO SCH ×2 (10:57→20:26)
[2020-01-06] MEDS: ZITHROMAX INJ 500 MG VIAL 500 MG in NS 250 ML IV 250 ML IV SCH (10:57)
[2020-01-06] MEDS: TRICOR TAB 160 MG PO SCH (10:57)
[2020-01-06] MEDS: ZINC SULFATE PO SCH ×2 (10:58→20:26)
[2020-01-06] MEDS: LOVENOX INJ 30 MG SYR SC SCH ×2 (10:58→20:24)
[2020-01-06] MEDS: REMDESIVIR (INVESTIGATIONAL DRUG GS-5734) 100 MG in NS 250 ML IV 250 ML IV SCH (10:59)
[2020-01-06] MEDS: PriLOSEC PO SCH (14:00)
[2020-01-06] MEDS ORDERED: K-RIDER 10 MEQ/NS 100 ML 10 MEQ/100 ML BAG IV PRN (17:26)
[2020-01-06] MEDS ORDERED: MICRO K EXTEN CAP 10 MEQ PO PRN (17:26)
[2020-01-06] MEDS ORDERED: KLOR-CON PO PRN (17:26)
[2020-01-06] MEDS ORDERED: POTASSIUM CHL 60 MEQ/NS 0.45% 500 ML IV PRN (17:26)
[2020-01-06] MEDS ORDERED: POTASSIUM CHLORIDE LIQ 20 MEQ UDC PO PRN (17:26)
[2020-01-06] MEDS ORDERED: POTASSIUM CHL 40 MEQ/NS 0.45% 500 ML IV PRN (17:26)
[2020-01-06] MEDS: ROBITUSSIN DM PO PRN (18:30)
[2020-01-06] MEDS ORDERED: SNACK - Diabetic Appropriate PO SCH (20:00)
[2020-01-06] MEDS: SNACK - Diabetic Appropriate PO SCH (20:24)
[2020-01-06] MEDS: K-DUR TAB 20 MEQ PO PRN (20:38)
[2020-01-06] MEDS ORDERED: NS 250 ML IV 250 ML IV ONE (23:58)
[2020-01-07] MEDS: MAGNESIUM SULFATE 1 GRAM/100 mL PREMIX 1 GM/100 ML BAG IV PRN ×2 (01:42→03:30)
[2020-01-07] MEDS: NS 1000 ML 1,000 ML IV SCH (02:39)
[2020-01-07] MEDS: ASCORBIC ACID INJ MULTI-DOSE VIAL 1,500 MG in NS 100 ML IV 100 ML IV SCH ×4 (04:00→21:50)
[2020-01-07 04:40] LABS: ABG ALLEN TEST POS; ABG BASE EXCESS -1.7 mmol/L (-2.0-2.0); ABG HCO3 21.5 mmol/L (22-26)
[2020-01-07 06:00] LABS: ALANINE AMINOTRANSFERASE 14 Units/L (12-78); ALBUMIN 2.6 g/dL (3.4-5.0); ALKALINE PHOSPHATASE 61 Units/L (46-116); ASPARTATE AMINO TRANSFERASE 19 Units/L (15-37); BLOOD UREA NITROGEN 9 mg/dL (7-18); CALCIUM 7.8 mg/dL (8.5-10.1); CARBON DIOXIDE 23.2 mmol/L (21-32); CHLORIDE 104 mmol/L (98-107); COR CA(FOR HYPOALB) 8.9 mg/dL (8.5-10.1); COR NA(FOR HYPERGLY) 140 mmol/L (136-145); CREATININE 0.48 mg/dL (0.55-1.02); MAGNESIUM 2.2 mg/dL (1.7-2.9); SODIUM 137 mmol/L (136-145); TOTAL PROTEIN 5.9 g/dL (6.4-8.2); eGFR NON BLACK RACES > 60 (>60)
[2020-01-07 06:10] LABS: BASOPHILS % (AUTO) 0.3 % (0.2-1.0); EOSINOPHILS % (AUTO) 0.1 % (0.9-2.9); HEMATOCRIT 35.5 % (36.0-47.0); HEMOGLOBIN 12.2 g/dL (12.0-16.0); LYMPHOCYTES # (AUTO) 1.2 X10^3/uL (1.3-2.9); LYMPHOCYTES % (AUTO) 41.7 % (21.0-51.0); MEAN CORPUSCULAR HEMOGLOBIN 29.3 pg (27.0-34.0); MEAN CORPUSCULAR HGB CONC 34.4 g/dL (33.0-35.0); MEAN CORPUSCULAR VOLUME 85.3 fL (80.0-100.0); MEAN PLATELET VOLUME 8.8 fL (7.4-11.0); MONOCYTES # (AUTO) 0.4 x10^3/uL (0.3-0.8); MONOCYTES % (AUTO) 13.1 % (0.0-13.0); NEUTROPHILS # (AUTO) 1.2 x10^3/uL (2.2-4.8); NEUTROPHILS % (AUTO) 44.8 % (42.0-75.0); PLATELET COUNT 142 X10^3/uL (150.0-450.0); RED BLOOD COUNT 4.16 X10^6/uL (3.5-5.4); RED CELL DISTRIBUTION WIDTH 13.6 % (11.6-16.5); WHITE BLOOD COUNT 2.8 X10^3/uL (3.6-10.0)
[2020-01-07] MEDS: ZOSYN VIAL 4.5 GRAMS 4.5 G in NS 100 ML IV + SPIKE MINIBAG* 100 ML IV SCH ×3 (06:24→21:53)
[2020-01-07] MEDS: HumuLIN R SUBCUT PRN ×4 (06:25→22:45)
[2020-01-07] MEDS: LOVENOX INJ 30 MG SYR SC SCH ×2 (09:52→21:50)
[2020-01-07] MEDS: PLAQUENIL PO SCH ×2 (09:54→21:52)
[2020-01-07] MEDS: TRICOR TAB 160 MG PO SCH (09:55)
[2020-01-07] MEDS: ZINC SULFATE PO SCH ×2 (09:55→21:52)
[2020-01-07] MEDS: PriLOSEC PO SCH (09:55)
[2020-01-07] MEDS: DECADRON TAB PO SCH (09:56)
[2020-01-07] MEDS: VITAMIN A PO SCH (09:57)
[2020-01-07] MEDS: REMDESIVIR (INVESTIGATIONAL DRUG GS-5734) 100 MG in NS 250 ML IV 250 ML IV SCH (09:58)
[2020-01-07] MEDS: VITAMIN D3 125 mcg (5,000 UNITS) PO SCH (09:58)
[2020-01-07] MEDS: ROBITUSSIN DM PO PRN (10:01)
[2020-01-07] MEDS: ZITHROMAX INJ 500 MG VIAL 500 MG in NS 250 ML IV 250 ML IV SCH (12:44)
[2020-01-07] MEDS ORDERED: CONSULT PHARMACY - ANTIBIOTIC XX SCH (13:00)
[2020-01-07] MEDS: LEVAQUIN TAB 500 MG PO SCH (15:50)
[2020-01-07] MEDS: SNACK - Diabetic Appropriate PO SCH (21:00)
[2020-01-08] MEDS: ASCORBIC ACID INJ MULTI-DOSE VIAL 1,500 MG in NS 100 ML IV 100 ML IV SCH ×4 (03:09→20:57)
[2020-01-08] MEDS: NS 1000 ML 1,000 ML IV SCH ×2 (03:09→21:34)
[2020-01-08 05:19] LABS: BASOPHILS % (AUTO) 0.3 % (0.2-1.0); EOSINOPHILS % (AUTO) 0.3 % (0.9-2.9); HEMATOCRIT 34.7 % (36.0-47.0); HEMOGLOBIN 11.9 g/dL (12.0-16.0); LYMPHOCYTES # (AUTO) 1.3 X10^3/uL (1.3-2.9); LYMPHOCYTES % (AUTO) 44.8 % (21.0-51.0); MEAN CORPUSCULAR HEMOGLOBIN 29.5 pg (27.0-34.0); MEAN CORPUSCULAR HGB CONC 34.1 g/dL (33.0-35.0); MEAN CORPUSCULAR VOLUME 86.3 fL (80.0-100.0); MEAN PLATELET VOLUME 9.4 fL (7.4-11.0); MONOCYTES # (AUTO) 0.3 x10^3/uL (0.3-0.8); MONOCYTES % (AUTO) 11.3 % (0.0-13.0); NEUTROPHILS # (AUTO) 1.3 x10^3/uL (2.2-4.8); NEUTROPHILS % (AUTO) 43.3 % (42.0-75.0); PLATELET COUNT 154 X10^3/uL (150.0-450.0); RED BLOOD COUNT 4.02 X10^6/uL (3.5-5.4); RED CELL DISTRIBUTION WIDTH 13.2 % (11.6-16.5)
[2020-01-08 05:34] LABS: ALANINE AMINOTRANSFERASE 13 Units/L (12-78); ALBUMIN 2.5 g/dL (3.4-5.0); ALKALINE PHOSPHATASE 58 Units/L (46-116); ASPARTATE AMINO TRANSFERASE 17 Units/L (15-37); BLOOD UREA NITROGEN 9 mg/dL (7-18); CALCIUM 7.8 mg/dL (8.5-10.1); CARBON DIOXIDE 24.6 mmol/L (21-32); CHLORIDE 105 mmol/L (98-107); COR NA(FOR HYPERGLY) 142 mmol/L (136-145); CREATININE 0.49 mg/dL (0.55-1.02); SODIUM 139 mmol/L (136-145); TOTAL PROTEIN 5.8 g/dL (6.4-8.2); eGFR NON BLACK RACES > 60 (>60)
[2020-01-08] MEDS: ZOSYN VIAL 4.5 GRAMS 4.5 G in NS 100 ML IV + SPIKE MINIBAG* 100 ML IV SCH ×3 (05:59→21:33)
[2020-01-08] MEDS: HumuLIN R SUBCUT PRN ×3 (06:15→20:59)
--- NOTE | 2020-01-08 06:25 | RAD ---
HISTORYPNEUMONIA, COVIDSTUDYCHEST, 1 [id number]/02/2020TECHNIQUEAP view of the chestFINDINGSCardiac and mediastinal contours appear similar more confluent airspace disease such as in the left lower lung and peripheral left midlung. No pleural effusion or pneumothorax.IMPRESSIONMild worsening in scattered bilateral airspace opacities consistent with pneumoniaElectronically signed by: Gumaro Mantilla (Jan 08, 2020 06:24:35)
[2020-01-08] MEDS: DECADRON TAB PO SCH (10:08)
[2020-01-08] MEDS: PLAQUENIL PO SCH ×2 (10:09→20:59)
[2020-01-08] MEDS: LEVAQUIN TAB 500 MG PO SCH (10:09)
[2020-01-08] MEDS: K-DUR TAB 20 MEQ PO PRN (10:11)
[2020-01-08] MEDS: PriLOSEC PO SCH (10:12)
[2020-01-08] MEDS: LOVENOX INJ 30 MG SYR SC SCH ×2 (10:12→20:58)
[2020-01-08] MEDS: REMDESIVIR (INVESTIGATIONAL DRUG GS-5734) 100 MG in NS 250 ML IV 250 ML IV SCH (10:13)
[2020-01-08] MEDS: TRICOR TAB 160 MG PO SCH (10:13)
[2020-01-08] MEDS: VITAMIN A PO SCH (10:14)
[2020-01-08] MEDS: ZINC SULFATE PO SCH ×2 (10:14→20:59)
[2020-01-08] MEDS: VITAMIN D3 125 mcg (5,000 UNITS) PO SCH (10:14)
[2020-01-08] MEDS: ZITHROMAX INJ 500 MG VIAL 500 MG in NS 250 ML IV 250 ML IV SCH (10:15)
[2020-01-08] MEDS: ROBITUSSIN DM PO PRN (18:09)
[2020-01-08] MEDS: SNACK - Diabetic Appropriate PO SCH (20:57)
[2020-01-09] MEDS: NS 1000 ML 1,000 ML IV SCH (00:08)
[2020-01-09] MEDS: ASCORBIC ACID INJ MULTI-DOSE VIAL 1,500 MG in NS 100 ML IV 100 ML IV SCH ×2 (02:24→10:18)
[2020-01-09 05:42] LABS: BASOPHILS % (AUTO) 0.2 % (0.2-1.0); EOSINOPHILS % (AUTO) 0.5 % (0.9-2.9); HEMATOCRIT 36.5 % (36.0-47.0); HEMOGLOBIN 12.4 g/dL (12.0-16.0); LYMPHOCYTES # (AUTO) 1.7 X10^3/uL (1.3-2.9); LYMPHOCYTES % (AUTO) 44.2 % (21.0-51.0); MEAN CORPUSCULAR HEMOGLOBIN 29.4 pg (27.0-34.0); MEAN CORPUSCULAR HGB CONC 34.1 g/dL (33.0-35.0); MEAN CORPUSCULAR VOLUME 86.4 fL (80.0-100.0); MONOCYTES # (AUTO) 0.4 x10^3/uL (0.3-0.8); MONOCYTES % (AUTO) 9.2 % (0.0-13.0); NEUTROPHILS # (AUTO) 1.8 x10^3/uL (2.2-4.8); NEUTROPHILS % (AUTO) 45.9 % (42.0-75.0); PLATELET COUNT 174 X10^3/uL (150.0-450.0); RED BLOOD COUNT 4.22 X10^6/uL (3.5-5.4); RED CELL DISTRIBUTION WIDTH 13.1 % (11.6-16.5); WHITE BLOOD COUNT 3.9 X10^3/uL (3.6-10.0)
[2020-01-09] MEDS: ZOSYN VIAL 4.5 GRAMS 4.5 G in NS 100 ML IV + SPIKE MINIBAG* 100 ML IV SCH (05:44)
[2020-01-09 05:51] LABS: ALANINE AMINOTRANSFERASE 15 Units/L (12-78); ALBUMIN 2.7 g/dL (3.4-5.0); ALKALINE PHOSPHATASE 62 Units/L (46-116); ASPARTATE AMINO TRANSFERASE 16 Units/L (15-37); BLOOD UREA NITROGEN 10 mg/dL (7-18); CALCIUM 8.4 mg/dL (8.5-10.1); CARBON DIOXIDE 29.4 mmol/L (21-32); CHLORIDE 103 mmol/L (98-107); COR CA(FOR HYPOALB) 9.4 mg/dL (8.5-10.1); COR NA(FOR HYPERGLY) 143 mmol/L (136-145); SODIUM 139 mmol/L (136-145); TOTAL PROTEIN 6.1 g/dL (6.4-8.2); eGFR NON BLACK RACES > 60 (>60)
[2020-01-09] MEDS: HumuLIN R SUBCUT PRN ×2 (06:29→12:26)
[2020-01-09] MEDS: ZITHROMAX INJ 500 MG VIAL 500 MG in NS 250 ML IV 250 ML IV SCH (10:17)
[2020-01-09] MEDS: REMDESIVIR (INVESTIGATIONAL DRUG GS-5734) 100 MG in NS 250 ML IV 250 ML IV SCH (10:18)
[2020-01-09] MEDS: TRICOR TAB 160 MG PO SCH (10:19)
[2020-01-09] MEDS: LEVAQUIN TAB 500 MG PO SCH (10:19)
[2020-01-09] MEDS: VITAMIN D3 125 mcg (5,000 UNITS) PO SCH (10:19)
[2020-01-09] MEDS: ZINC SULFATE PO SCH (10:20)
[2020-01-09] MEDS: PriLOSEC PO SCH (10:21)
[2020-01-09] MEDS: DECADRON TAB PO SCH (10:21)
[2020-01-09] MEDS: PLAQUENIL PO SCH (10:22)
[2020-01-09] MEDS: K-DUR TAB 20 MEQ PO PRN (10:22)
[2020-01-09] MEDS: VITAMIN A PO SCH (10:22)
[2020-01-09] MEDS: LOVENOX INJ 30 MG SYR SC SCH (10:24)
--- NOTE | 2020-01-09 10:42 | W.DIS.FURT ---
Summary of Discharge Discharge Summary of Date Date of Exam: 01/09/20 Admission Date Date of Admission: 01/05/20 Admission Diagnosis Hospital Course: Pt is a 54 yo f admitted for COVID-19 pneumonia and DKA. Her hospital course/treatments included IV antibiotics(Azithromycin, Zosyn, Levaquin), respiratory therapy, bronchodilators, supplemental oxygen, IV Remedesivir, convalescent plasma, hydroxychloroquine, and decadron. Pt responded well to treatments and did not require any supplemental O2 on day of discharge. Her diabetic ketoacidosis also resolved after receiving IVF and SSI. On day of discharge pt was sitting in recliner without oxygen, feeling well, without any concerns. Labs/imaging: Wbc 3.9, Hgb 12.4, Plt 174, Na 139, K 3.4, Cr 0.60, Gluc 258. Pt discharged home in stable condition with instructions to complete Levaquin course prescribed and to resume oral hypoglycemics. Instructed to follow up with pcp in 3-5 days. Vital Signs: Vital Signs (72 hours) 01/06/20 11:00 01/06/20 12:00 01/06/20 13:00 Temperature 98.6 F Pulse Rate [Apical] 97 H 101 H 105 H Respiratory Rate 25 H 27 H 24 Blood Pressure [Right Arm] 104/53 107/56 124/60 O2 Sat by Pulse Oximetry 98 97 99 01/06/20 14:00 01/06/20 15:00 01/06/20 16:00 Temperature 98.5 F Pulse Rate [Apical] 100 H 98 H 97 H Respiratory Rate 25 H 23 23 Blood Pressure [Right Arm] 112/51 110/63 104/57 O2 Sat by Pulse Oximetry 94 L 95 94 L 01/06/20 17:00 01/06/20 18:00 01/06/20 19:00 Temperature Pulse Rate [Apical] 92 H 95 H 82 Respiratory Rate 22 29 H 25 H Blood Pressure [Right Arm] 106/56 108/61 119/57 O2 Sat by Pulse Oximetry 96 96 100 01/06/20 20:00 01/06/20 21:00 01/06/20 22:00 Temperature 99.2 F Pulse Rate [Apical] 77 74 79 Respiratory Rate 26 H 21 23 Blood Pressure [Right Arm] 106/58 104/53 111/53 O2 Sat by Pulse Oximetry 97 97 98 01/06/20 23:00 01/07/20 00:00 01/07/20 01:00 Temperature 98.3 F Pulse Rate [Apical] 84 80 80 Respiratory Rate 23 22 21 Blood Pressure [Right Arm] 103/59 109/59 100/51 O2 Sat by Pulse Oximetry 97 95 96 01/07/20 02:00 01/07/20 03:00 01/07/20 04:00 Temperature 97.9 F Pulse Rate [Apical] 79 77 64 Respiratory Rate 24 20 24 Blood Pressure [Right Arm] 99/54 90/51 102/57 O2 Sat by Pulse Oximetry 96 95 95 01/07/20 05:00 01/07/20 06:00 01/07/20 07:00 Temperature Pulse Rate [Apical] 77 75 84 Respiratory Rate 22 24 24 Blood Pressure [Right Arm] 89/50 102/60 94/53 O2 Sat by Pulse Oximetry 95 97 100 01/07/20 08:00 01/07/20 09:00 01/07/20 10:00 Temperature 98.2 F Pulse Rate [Apical] 86 93 H 87 Respiratory Rate 17 21 20 Blood Pressure [Right Arm] 112/57 116/56 108/53 O2 Sat by Pulse Oximetry 97 100 96 01/07/20 11:00 01/07/20 12:00 01/07/20 13:00 Temperature 98.3 F Pulse Rate [Apical] 82 84 83 Respiratory Rate 18 18 18 Blood Pressure [Right Arm] 101/53 105/56 106/56 O2 Sat by Pulse Oximetry 97 96 95 01/07/20 14:00 01/07/20 15:00 01/07/20 16:00 Temperature 97.8 F Pulse Rate [Apical] 87 89 82 Respiratory Rate 18 18 20 Blood Pressure [Right Arm] 122/56 117/57 112/55 O2 Sat by Pulse Oximetry 96 98 96 01/07/20 17:00 01/07/20 18:00 01/07/20 19:00 Temperature Pulse Rate [Apical] 83 84 86 Respiratory Rate 20 18 18 Blood Pressure [Right Arm] 117/65 125/60 128/65 O2 Sat by Pulse Oximetry 96 94 L 96 01/07/20 20:00 01/07/20 21:00 01/07/20 22:00 Temperature 98.1 F Pulse Rate [Apical] 89 95 H 75 Respiratory Rate 20 22 18 Blood Pressure [Right Arm] 125/57 118/85 132/62 O2 Sat by Pulse Oximetry 95 94 L 96 01/07/20 23:00 01/08/20 00:00 01/08/20 01:00 Temperature 98.8 F Pulse Rate [Apical] 74 75 72 Respiratory Rate 18 18 22 Blood Pressure [Right Arm] 128/66 121/58 115/55 O2 Sat by Pulse Oximetry 98 94 L 93 L 01/08/20 02:00 01/08/20 03:00 01/08/20 04:00 Temperature 98.8 F Pulse Rate [Apical] 79 78 79 Respiratory Rate 18 20 18 Blood Pressure [Right Arm] 109/61 112/51 109/56 O2 Sat by Pulse Oximetry 93 L 95 96 01/08/20 05:00 01/08/20 06:00 01/08/20 07:00 Temperature 98.6 F Pulse Rate [Apical] 68 84 73 Respiratory Rate 20 20 20 Blood Pressure [Right Arm] 109/55 98/55 99/55 O2 Sat by Pulse Oximetry 93 L 93 L 95 01/08/20 08:00 01/08/20 09:00 01/08/20 10:00 Temperature Pulse Rate [Apical] 85 82 84 Respiratory Rate 18 19 18 Blood Pressure [Right Arm] 122/59 106/53 100/50 O2 Sat by Pulse Oximetry 97 96 97 01/08/20 11:00 01/08/20 12:00 01/08/20 13:00 Temperature Pulse Rate [Apical] 73 80 81 Respiratory Rate 18 19 18 Blood Pressure [Right Arm] 116/55 98/52 108/54 O2 Sat by Pulse Oximetry 94 L 97 98 01/08/20 14:00 01/08/20 15:00 01/08/20 16:00 Temperature 98.6 F Pulse Rate [Apical] 79 86 78 Respiratory Rate 17 19 18 Blood Pressure [Right Arm] 113/60 113/56 112/55 O2 Sat by Pulse Oximetry 99 95 93 L 01/08/20 17:00 01/08/20 18:00 01/08/20 19:00 Temperature Pulse Rate [Apical] 96 H 92 H 93 H Respiratory Rate 19 18 17 Blood Pressure [Right Arm] 112/63 115/65 124/61 O2 Sat by Pulse Oximetry 96 95 94 L 01/08/20 20:00 01/08/20 21:00 01/08/20 22:00 Temperature 99.0 F Pulse Rate [Apical] 74 73 74 Respiratory Rate 17 18 18 Blood Pressure [Right Arm] 125/58 122/66 110/58 O2 Sat by Pulse Oximetry 94 L 95 93 L 01/08/20 23:00 01/09/20 00:00 01/09/20 01:00 Temperature 98.2 F Pulse Rate [Apical] 72 73 67 Respiratory Rate 18 19 16 Blood Pressure [Right Arm] 115/59 124/74 124/62 O2 Sat by Pulse Oximetry 95 94 L 97 01/09/20 02:00 01/09/20 03:00 01/09/20 04:00 Temperature 98.2 F Pulse Rate [Apical] 71 62 64 Respiratory Rate 18 17 17 Blood Pressure [Right Arm] 126/56 127/59 120/59 O2 Sat by Pulse Oximetry 95 95 94 L 01/09/20 05:00 01/09/20 06:00 01/09/20 07:00 Temperature Pulse Rate [Apical] 66 66 62 Respiratory Rate 18 16 18 Blood Pressure [Right Arm] 116/58 104/51 124/62 O2 Sat by Pulse Oximetry 95 94 L 93 L 01/09/20 08:00 Temperature 98.2 F Pulse Rate [Apical] 71 Respiratory Rate 20 Blood Pressure [Right Arm] 115/59 O2 Sat by Pulse Oximetry 96 Labs: Laboratory Last Values WBC 3.9 X10^3/uL (3.6-10.0) 01/09/20 04:25 RBC 4.22 X10^6/uL (3.5-5.4) 01/09/20 04:25 Hgb 12.4 g/dL (12.0-16.0) 01/09/20 04:25 Hct 36.5 % (36.0-47.0) 01/09/20 04:25 MCV 86.4 fL (80.0-100.0) 01/09/20 04:25 MCH 29.4 pg (27.0-34.0) 01/09/20 04:25 MCHC 34.1 g/dL (33.0-35.0) 01/09/20 04:25 RDW 13.1 % (11.6-16.5) 01/09/20 04:25 Plt Count 174 X10^3/uL (150.0-450.0) 01/09/20 04:25 MPV 9.0 fL (7.4-11.0) 01/09/20 04:25 Neut % (Auto) 45.9 % (42.0-75.0) 01/09/20 04:25 Lymph % (Auto) 44.2 % (21.0-51.0) 01/09/20 04:25 [place] % (Auto) 9.2 % (0.0-13.0) 01/09/20 04:25 Eos % (Auto) 0.5 % (0.9-2.9) L 01/09/20 04:25 Baso % (Auto) 0.2 % (0.2-1.0) 01/09/20 04:25 Neut # (Auto) 1.8 x10^3/uL (2.2-4.8) L 01/09/20 04:25 Lymph # (Auto) 1.7 X10^3/uL (1.3-2.9) 01/09/20 04:25 [place] # (Auto) 0.4 x10^3/uL (0.3-0.8) 01/09/20 04:25 Eos # (Auto) 0.0 x10^3/uL (0.0-0.2) 01/09/20 04:25 Baso # (Auto) 0.0 X10^3/uL (0.0-0.1) 01/09/20 04:25 Absolute Nucleated RBC 0.2 /100WBC 01/09/20 04:25 APTT 31.9 SECONDS (22.9-36.5) 01/04/20 10:35 PTT Comment - 01/04/20 10:35 Sample Site Rrad 01/07/20 04:30 ABG pH 7.450 (7.35-7.45) 01/07/20 04:30 ABG pCO2 31.0 mmHg (35.0-45.0) L 01/07/20 04:30 ABG pO2 74.0 mmHg (80.0-100.0) L 01/07/20 04:30 ABG HCO3 21.5 mmol/L (22-26) L 01/07/20 04:30 ABG O2 Saturation 95.0 % (90-100) 01/07/20 04:30 ABG Base Excess -1.7 mmol/L (-2.0-2.0) 01/07/20 04:30 Bob Test Pos 01/07/20 04:30 A-a Gradient 37.0 mmHg 01/07/20 04:30 FiO2 21.0 01/07/20 04:30 Blood Gas Comments Gabriela abg well-mtf 01/07/20 04:30 Sodium 139 mmol/L (136-145) 01/09/20 04:25 Corrected Sodium 143 mmol/L (136-145) 01/09/20 04:25 Potassium 3.4 mmol/L (3.5-5.1) L 01/09/20 04:25 Chloride 103 mmol/L (98-107) 01/09/20 04:25 Carbon Dioxide 29.4 mmol/L (21-32) 01/09/20 04:25 BUN 10 mg/dL (7-18) 01/09/20 04:25 Creatinine 0.60 mg/dL (0.55-1.02) 01/09/20 04:25 Est GFR (MDRD) Af Amer > 60 (>60) 01/09/20 04:25 Est GFR (MDRD) Non-Af > 60 (>60) 01/09/20 04:25 Glucose 258 mg/dL (65-99) H 01/09/20 04:25 POC Glucose (mg/dL) 245 mg/dL (65-99) H 01/05/20 01:17 Calcium 8.4 mg/dL (8.5-10.1) L 01/09/20 04:25 Corrected Calcium 9.4 mg/dL (8.5-10.1) 01/09/20 04:25 Magnesium 2.2 mg/dL (1.7-2.9) 01/07/20 05:20 Total Bilirubin 0.40 mg/dL (0.2-1.0) 01/09/20 04:25 AST 16 Units/L (15-37) 01/09/20 04:25 ALT 15 Units/L (12-78) 01/09/20 04:25 Alkaline Phosphatase 62 Units/L (46-116) 01/09/20 04:25 Creatine Kinase 21 Units/L (26-192) L 01/04/20 10:35 CK-MB (CK-2) < 1.0 ng/mL (0-4.0) 01/04/20 10:35 CK/CKMB % Calc 4.8 % (<4) 01/04/20 10:35 Troponin I < 0.02 ng/mL (0-1.5) 01/05/20 00:01 C-Reactive Protein 56.10 mg/L (0-3.0) H 01/04/20 23:38 Total Protein 6.1 g/dL (6.4-8.2) L 01/09/20 04:25 Albumin 2.7 g/dL (3.4-5.0) L 01/09/20 04:25 Globulin 3.4 g/dL (2.5-4.5) 01/09/20 04:25 Albumin/Globulin Ratio 0.8 Ratio (1.1-2.1) L 01/09/20 04:25 Specimen Type Clean catch urine 01/05/20 18:00 Urine Color Yellow (YELLOW) 01/05/20 18:00 Urine Appearance Clear (CLEAR) 01/05/20 18:00 Urine pH 6.0 (5.0 - 8.0) 01/05/20 18:00 Ur Specific [place] 1.015 (1.000-1.030) 01/05/20 18:00 Urine Protein 1+ (NEGATIVE) 01/05/20 18:00 Urine Glucose (UA) 4+ (NEGATIVE) 01/05/20 18:00 Urine Ketones 4+ (NEGATIVE) 01/05/20 18:00 Urine Occult Blood Negative (NEGATIVE) 01/05/20 18:00 Urine Nitrite Negative (NEGATIVE) 01/05/20 18:00 Urine Bilirubin Negative (NEGATIVE) 01/05/20 18:00 Urine Urobilinogen Normal (NORMAL) 01/05/20 18:00 Ur Leukocyte Esterase Negative (NEGATIVE) 01/05/20 18:00 Urine RBC None seen /HPF (0-3) 01/05/20 18:00 Urine WBC None seen /HPF (0-5) 01/05/20 18:00 Ur Squamous Epith Cells Rare /HPF (NEGATIVE) 01/05/20 18:00 Urine Bacteria Negative /HPF (NEGATIVE) 01/05/20 18:00 Ur Culture Indicated? Yes/culture set up 01/05/20 18:00 Acetone, Semi-Quant Negative (NEGATIVE) 01/06/20 15:15 SARS-CoV-2 (PCR) Positive (NEGATIVE) A 01/05/20 00:56 Miscellaneous Test Covid 19 01/04/20 11:49 Blood Type A POSITIVE 01/05/20 09:05 Reason For Visit: DKA, COVID 19 PNEUMONIA Discharge Date Discharge Date: 01/09/20 Discharge Diagnosis All Active Problems (Updated 01/05/20 @ 18:04 by DONALD MIR) Elbow contusion (Acute) Elbow sprain (Acute) Acute viral syndrome (Acute) Hyperglycemia (Acute) Pneumonia due to 2019 novel coronavirus (Acute) DKA (diabetic ketoacidoses) (Acute) CAD (coronary artery disease) (Acute) Plan of Treatment: Continue with present treatment and follow up plan. Pt is to keep follow up appointment as instructed and take medications as ordered. Discharge Medications Discharge Medications: Sulfa (Sulfonamide Antibiotics) [SULFA] Allergy (Verified 01/04/20 10:05) CONTINUE taking the following medications Farxiga 10 mg PO DAILY 01/05/20 [History] [place] 3-6-9 1 cap PO DAILY 01/05/20 [History] aspirin [Aspir-81] 81 mg PO DAILY 01/05/20 [History] diazepam 5 mg PO DAILY PRN 01/05/20 [History] metformin 10,000 mg PO BID 01/05/20 [History] metoprolol succinate 12.5 mg PO DAILY 01/05/20 [History] omeprazole 20 mg PO DAILY 01/05/20 [History] New Prescriptions levofloxacin 500 mg PO DAILY 4 Days #4 tab 01/09/20 [Rx] Discharge Disposition Discharge Disposition: Home Discharge Condition: Stable
[2020-01-09 15:03] VITALS: BP 119/56
== END 2020-01-09 15:20 | disposition home or self-care (01) | DRG 177 ==
LOC: ER 10:01 → ICU 01-05 00:54 → MED/SURG 01-07 10:10
PROVIDERS: ADMIT Obstetrics & Gynecology Obstetrics; ATTEND Internal Medicine
DX: U07.1 COVID-19; R43.8 Other disturbances of smell and taste; J12.89 Other viral pneumonia; I10 Essential (primary) hypertension; M54.89 Other dorsalgia; B95.62 Methicillin resistant Staphylococcus aureus infection as the cause of diseases classified elsewhere; I25.10 Atherosclerotic heart disease of native coronary artery without angina pectoris; E11.10 Type 2 diabetes mellitus with ketoacidosis without coma

== ENCOUNTER 2020-04-24 07:03 | Inpatient (IN) ==
--- NOTE | 2020-04-24 07:14 | DR.GENAD ---
HPI - PCP Primary Care Physician: ABDULAZIZ LEAL - Complaint/Symptoms Chief Complaint Doctors Comments: Patient is complaining of diffuse abdominal pain with nausea and decreased appetite for the past four days since having gallbladder surgery. Patient states she has not had a bowel movement since the surgery. She denies fever, chills, vomiting or diarrhea. States she has had a hysterectomy years ago and has had decreased sensation in her lower abdomen since the surgery. She denies cold, cough, fever or chills. She is complaining of SOB but denies chest pain. She denies tobacco or alcohol usage. States she has been taking Colace, Dulcolax without any relief. She has been taking Zofran for nausea and [place] 5 for pain but has not had many pain tablets. States her heart has been beating fast but denies chest pain. Chief Complaint:: PT. HAD GALLBLADDER SURGERY ON SATURDAY PER DR. MOODY. PT. STATES SHE HAD NOT HAD A BOWEL MOVEMENT SINCE SURGERY. PT. STATES SHE HAS BEEN TAKING COLACE AND DULCOLAX LAXATIVES WITH NO RESULTS. PT. C/O NAUSEA. PT. DOES STATE THAT SHE HAS BEEN BELCHING AND PASSING GAS. - COVID-19 Coronavirus risk:travel/contact w/high risk person: No Has patient experienced Coronavirus symptoms: No Coronavirus symptoms experienced: Shortness of Breath - Nurses notes reviewed Nurses Notes Review: Yes - Source History Provided: Patient - Mode of Arrival Mode of Arrival: Ambulatory - Timing Onset of Chief Complaint: 04/20/20 Came on: Gradually - Duration Duration: Constant How lon Duration: Days - Location Location: lower abdominal pain - Severity Severity: Moderate - Modifying Factors Worsens:: nothing Improves:: nothing PMH - PMH Past Medical History: Yes Past Medical History: Anxiety, Coronary Artery Disease, Diabetes, Hypertension, Kidney Stones Past Surgical History: Yes Surgical History: Angioplasty/Stents, Cholecystectomy, Hysterectomy - Family History History of Family Medical Conditions: Yes Family Medical History: Diabetes Mellitus, Cancer, ID - Social History Does patient currently use any type of tobacco product: No Have you used tobacco products in the last 12 months: No Type of Tobacco Use: None Does any household member use tobacco: No Alcohol Use: None Do you use any recreational Drugs:: No Lives With: Spouse Lives Where: Home - infectious screening In the last 2 months have you had wt loss of >10#?: NO Have you had fever, night sweats or hemotysis?: No Have you traveled outside the country in the last 6 months?: No Isolation: Standard ROS - Review of Systems Constitutional: No Symptoms Reported, Weakness, Loss of Appetite Eyes: No Symptoms Reported ENTM: No Symptoms Reported Respiratoy: No Symptoms Reported, Short of Breath. negative: See HPI, Productive Cough, Non-Productive Cough, Moist Cough, Dry Cough, Hacking Cough, Barking Cough, Brassy Cough, Orthopnea, Stridor, Wheezing, Hemoptysis, Other Cardiovascular: No Symptoms Reported, Palpitations. negative: See HPI, Chest Pain, Edema, Syncope, Cyanosis, Skin Mottling, Other Gastrointestinal/Abdominal: No Symptoms Reported, Abdominal Pain, Constipation, Nausea Genitourinary: No Symptoms Reported. negative: See HPI, Discharge, Dysuria, Frequency, Hematuria, Pain, Bleeding, Other Neurological: No Symptoms Reported Musculoskeletal: No Symptoms Reported. negative: See HPI, Back Pain, Gout, Joint Pain, Joint Swelling, Muscle Pain, Muscle Stiffness, Neck Pain, Right, Left, Neck, Chest wall, Rib(s), Back, Shoulder, Arm, Elbow, Forearm, Wrist, Hand, Pelvis, Hip, Leg, Knee, Ankle, Foot, Other Integumentary: No Symptoms Reported. negative: See HPI, Change in Color, Change in Hair/Nails, Dryness, Lesions, Lumps, Rash, Itching, Wound, Bruises, Juandice, Other Hematologic/Lymphatic: No Symptoms Reported. negative: See HPI, Anemia, Blood Clots, Easy Bleeding, Easy Bruising, Swollen Glands, Lymphadenopathy, Other Endocrine: No Symptoms Reported Psychiatric: No Symptoms Reported. negative: See HPI, Anxiety, Depression, Hallucinations, Excessive crying, Suicidal, Other PE - General Limitations: No Limitations. negative: Language Barrier, Altered Mental Status, Physical Limitation, Other General Appearance: Alert, In Distress (moderate) - Head Head Exam: Normal Inspection, Atraumatic, Normocephalic - Eyes Eye exam: Normal Appearance, PERRL, EOMI. negative: Scleral Icterus, Conjunctival Injection, Nystagmus, Miosis, Mydrasis, Periorbital Swelling, Periorbital Tenderness, Other - ENT ENT Exam: Normal Exam, Normal Oropharynx, Normal External Ear Exam, Mucous Membranes Moist, TM's Normal Bilaterally External Ear Exam: Normal External Inspection TM/Canal Exam: Bilateral Normal Nose Exam: Normal Nose Exam. negative: Sinus Tenderness, Nasal Deviation, Crepitus, Septal Hematoma, Laceration, Abrasion, Other Mouth Exam: Normal Inspection. negative: Drooling, Trismus, Lip Swelling, Tongue Elevation, Tongue Swelling, Laceration, Other Throat Exam: Normal Inspection. negative: Tonsillar Erythema, Tonsillomegaly, Tonsillar Exudate, R Peritonsillar Mass, L Peritonsillar Mass, Muffled Voice, Other - Neck Neck Exam: Normal Inspection, Full ROM, Trachea Midline. negative: Tenderness, Meningismus, Lymphadenopathy, Thyromegaly, Other - Chest Chest Inspection: Normal Inspection, Symmetric Chest Wall Rise. negative: Tenderness, Rash, Abscess, Other - Respiratory Respiratory Exam: Normal Lung Sounds Bilat Respiratory Exam: Bilateral Clear to Auscultation - Cardiovascular Cardiovascular Exam: Regular Rate, Normal Rhythm, Tachycardia, Normal Heart Sounds - Abdominal Exam Abdominal Exam: Normal Inspection, Normal Bowel Sounds, Soft, Distention, Tenderness (RLQ and suprapubic tenderness), Guarding, Dimnished Bowel Sounds Abdominal Tenderness: RLQ, Suprapubic, Moderate - Extremities Extremities Exam: Normal Inspection, Full ROM, Normal Capillary Refill. negative: Tenderness, Edema, Joint Swelling, Calf Tenderness, Other - Back Back Exam: Normal Inspection, Full ROM. negative: Tenderness, (R) CVA Tenderness, (L) CVA Tenderness, Muscle Spasm, Paraspinal Tenderness, Vertebral Tenderness, Rashes, (R) Sciatic Notch Tenderness, (L) Sciatic Notch Tendern, (R) Straight Leg Raise, (L) Straight Leg Raise, Other - Neurologic Neurological Exam: Alert, Oriented X3, CN II-XII Intact, Reflexes Normal. negative: Normal Gait (gait not tested) - Psychiatric Psychiatric Exam: Normal Affect, Normal Mood. negative: Depressed, Agitated, Anxious, Flat Affect, Manic, Homicidal Ideation, Suicidal Ideation, Other - Skin Skin Exam: Warm, Dry, Intact, Normal Color. negative: Rash, Cyanosis, Diaphoresis, Erythema, Pallor, Mottled, Other - Vital Signs Vitals: Temperature 97.8 F Pulse Rate 106 Respiratory Rate 18 Blood Pressure [Right Arm] 119/56 Blood Pressure 130/60 O2 Sat by Pulse Oximetry 97 ROR - Labs Reviewed Result Diagrams: 04/24/20 07:30 04/24/20 07:30 - Labs Reviewed Laboratory: WBC 14.9 X10^3/uL (3.6-10.0) H 04/24/20 07:30 RBC 5.55 X10^6/uL (3.5-5.4) H 04/24/20 07:30 Hgb 16.2 g/dL (12.0-16.0) H 04/24/20 07:30 Hct 49.1 % (36.0-47.0) H 04/24/20 07:30 MCV 88.4 fL (80.0-100.0) 04/24/20 07:30 MCH 29.1 pg (27.0-34.0) 04/24/20 07:30 MCHC 33.0 g/dL (33.0-35.0) 04/24/20 07:30 RDW 13.9 % (11.6-16.5) 04/24/20 07:30 Plt Count 336 X10^3/uL (150.0-450.0) 04/24/20 07:30 MPV 9.8 fL (7.4-11.0) 04/24/20 07:30 Neut % (Auto) 76.0 % (42.0-75.0) H 04/24/20 07:30 Lymph % (Auto) 15.6 % (21.0-51.0) L 04/24/20 07:30 [place] % (Auto) 6.3 % (0.0-13.0) 04/24/20 07:30 Eos % (Auto) 1.7 % (0.9-2.9) 04/24/20 07:30 Baso % (Auto) 0.4 % (0.2-1.0) 04/24/20 07:30 Neut # (Auto) 11.3 x10^3/uL (2.2-4.8) H 04/24/20 07:30 Lymph # (Auto) 2.3 X10^3/uL (1.3-2.9) 04/24/20 07:30 [place] # (Auto) 0.9 x10^3/uL (0.3-0.8) H 04/24/20 07:30 Eos # (Auto) 0.3 x10^3/uL (0.0-0.2) H 04/24/20 07:30 Baso # (Auto) 0.1 X10^3/uL (0.0-0.1) 04/24/20 07:30 Absolute Nucleated RBC 0.1 /100WBC 04/24/20 07:30 PT 14.3 SECONDS (11.8-14.3) 04/24/20 07:30 INR Target Range - 04/24/20 07:30 INR 1.14 (0.8-1.3) 04/24/20 07:30 APTT 30.8 SECONDS (22.9-36.5) 04/24/20 07:30 PTT Comment - 04/24/20 07:30 Sodium 136 mmol/L (136-145) 04/24/20 07:30 Corrected Sodium 138 mmol/L (136-145) 04/24/20 07:30 Potassium 4.7 mmol/L (3.5-5.1) 04/24/20 07:30 Chloride 99 mmol/L (98-107) 04/24/20 07:30 Carbon Dioxide 12.7 mmol/L (21-32) L* 04/24/20 07:30 BUN 11 mg/dL (7-18) 04/24/20 07:30 Creatinine 0.83 mg/dL (0.55-1.02) 04/24/20 07:30 Est GFR (MDRD) Af Amer > 60 (>60) 04/24/20 07:30 Est GFR (MDRD) Non-Af > 60 (>60) 04/24/20 07:30 Glucose 185 mg/dL (65-99) H 04/24/20 07:30 Calcium 9.5 mg/dL (8.5-10.1) 04/24/20 07:30 Corrected Calcium TNP 04/24/20 07:30 Magnesium 1.6 mg/dL (1.7-2.9) L 04/24/20 07:30 Total Bilirubin 1.10 mg/dL (0.2-1.0) H 04/24/20 07:30 AST 18 Units/L (15-37) 04/24/20 07:30 ALT 76 Units/L (12-78) 04/24/20 07:30 Alkaline Phosphatase 97 Units/L (46-116) 04/24/20 07:30 Creatine Kinase 15 Units/L (26-192) L 04/24/20 07:30 CK-MB (CK-2) < 1.0 ng/mL (0-4.0) 04/24/20 07:30 CK/CKMB % Calc 6.7 % (<4) 04/24/20 07:30 Troponin I < 0.02 ng/mL (0-1.5) 04/24/20 07:30 Total Protein 8.4 g/dL (6.4-8.2) H 04/24/20 07:30 Albumin 3.9 g/dL (3.4-5.0) 04/24/20 07:30 Globulin 4.5 g/dL (2.5-4.5) 04/24/20 07:30 Albumin/Globulin Ratio 0.9 Ratio (1.1-2.1) L 04/24/20 07:30 Amylase 26 Units/L (25-115) 04/24/20 07:30 Lipase 114 Units/L (73-393) 04/24/20 07:30 Opioid - Opioid Risk Tool Age (Jozef box if 16-45): No History of Preadolescent Sexual Abuse: No Total: 0 Total Score Risk Category: Low Risk - Discharge Plan Condition: Stable - Follow ups/Referrals Follow ups/Referrals: DONALD MIR [Primary Care Provider] - 3 days - Instructions Additional Instructions: [id number] Patient care turned over to Dr. Rojas for continued care and evaluation. Paient with history DKA presently getting treatment.
[2020-04-24] MEDS ORDERED: ZOFRAN INJ 4 MG VIAL ONE ×3 (07:22→15:40)
[2020-04-24] MEDS ORDERED: NS 1000 ML 1,000 ML ONE ×3 (07:22→10:22)
[2020-04-24] MEDS ORDERED: TORADOL 30 MG VIAL ONE (07:22)
[2020-04-24] MEDS ORDERED: TORADOL 30 MG VIAL IVP ONE (07:37)
[2020-04-24] MEDS ORDERED: ZOFRAN INJ 4 MG VIAL IVP ONE ×2 (07:37→12:02)
[2020-04-24 07:42] LABS: BASOPHILS # (AUTO) 0.1 X10^3/uL (0.0-0.1); BASOPHILS % (AUTO) 0.4 % (0.2-1.0); EOSINOPHILS # (AUTO) 0.3 x10^3/uL (0.0-0.2); EOSINOPHILS % (AUTO) 1.7 % (0.9-2.9); HEMATOCRIT 49.1 % (36.0-47.0); HEMOGLOBIN 16.2 g/dL (12.0-16.0); LYMPHOCYTES # (AUTO) 2.3 X10^3/uL (1.3-2.9); LYMPHOCYTES % (AUTO) 15.6 % (21.0-51.0); MEAN CORPUSCULAR HEMOGLOBIN 29.1 pg (27.0-34.0); MEAN CORPUSCULAR VOLUME 88.4 fL (80.0-100.0); MEAN PLATELET VOLUME 9.8 fL (7.4-11.0); MONOCYTES # (AUTO) 0.9 x10^3/uL (0.3-0.8); MONOCYTES % (AUTO) 6.3 % (0.0-13.0); NEUTROPHILS # (AUTO) 11.3 x10^3/uL (2.2-4.8); PLATELET COUNT 336 X10^3/uL (150.0-450.0); RED BLOOD COUNT 5.55 X10^6/uL (3.5-5.4); RED CELL DISTRIBUTION WIDTH 13.9 % (11.6-16.5); WHITE BLOOD COUNT 14.9 X10^3/uL (3.6-10.0)
[2020-04-24] MEDS: NS 1000 ML 1,000 ML IV SCH ×3 (07:58→15:05)
[2020-04-24 07:59] LABS: ALANINE AMINOTRANSFERASE 76 Units/L (12-78); ALBUMIN 3.9 g/dL (3.4-5.0); ALKALINE PHOSPHATASE 97 Units/L (46-116); AMYLASE 26 Units/L (25-115); ASPARTATE AMINO TRANSFERASE 18 Units/L (15-37); BLOOD UREA NITROGEN 11 mg/dL (7-18); CALCIUM 9.5 mg/dL (8.5-10.1); CHLORIDE 99 mmol/L (98-107); CKMB % 6.7 % (<4); COR NA(FOR HYPERGLY) 138 mmol/L (136-145); CREATINE KINASE 15 Units/L (26-192); CREATINE KINASE MB < 1.0 ng/mL (0-4.0); CREATININE 0.83 mg/dL (0.55-1.02); LIPASE 114 Units/L (73-393); MAGNESIUM 1.6 mg/dL (1.7-2.9); SODIUM 136 mmol/L (136-145); TOTAL PROTEIN 8.4 g/dL (6.4-8.2); TROPONIN I < 0.02 ng/mL (0-1.5); eGFR NON BLACK RACES > 60 (>60)
[2020-04-24 08:04] LABS: CARBON DIOXIDE 12.7 mmol/L (21-32)
--- NOTE | 2020-04-24 08:12 | CT ---
HISTORYPt c/o abdominal pain; no bowel movement since gallbladder surgery on Saturday.STUDYABDOMEN/PELVIS W/O [id number]/31/2020.TECHNIQUEAxial CT images of the abdomen and pelvis without intravenous contrast. Coronal and sagittal images are obtained. Dose reduction techniques including Automated Exposure Control (AEC) and adjustment of mA and kV were utilized.FINDINGSLower chest: NormalLiver: Mild hepatic steatosis.Gallbladder and Bile Ducts:Postoperative changes recent cholecystectomy with skin norbert in the anterior abdomen. No organized fluid collection in the gallbladder fossa.Pancreas: NormalSpleen: NormalAdrenals: NormalKidneys: NormalBladder: NormalBowel and Stomach: NormalUterus: HysterectomyAppendix: Normal appendixLymph Nodes: No significant lymphadenopathyVasculature: Abdominal aorta and branching vessels are normal in caliberOther: No free air, free fluid, or focal fluid collectionOsseous Structures: No acute osseous findingsIMPRESSION1. Expected postoperative changes recent cholecystectomy. No organized fluid collection in the gallbladder fossa.2. No acute process of the abdomen or pelvis.Electronically signed by: Lobito Andrews (Apr 24, 2020 08:10:47)
[2020-04-24 09:04] LABS: ABG BASE EXCESS -17.5 mmol/L (-2.0-2.0)
[2020-04-24 09:05] LABS: ABG HCO3 8.4 mmol/L (22-26)
[2020-04-24] MEDS ORDERED: NS 1000 ML 1,000 ML IV ONE ×2 (09:05→10:13)
[2020-04-24 10:28] LABS: BILIRUBIN,URINE NEGATIVE (NEGATIVE); BLOOD/HEMOGLOBIN,URINE NEGATIVE (NEGATIVE); GLUCOSE, URINE 4+ (NEGATIVE); KETONES,URINE 4+ (NEGATIVE); LEUKOCYTE ESTERASE ,URINE NEGATIVE (NEGATIVE); NITRITES,URINE NEGATIVE (NEGATIVE); PROTEIN,URINE 2+ (NEGATIVE); UROBILINOGEN,URINE NORMAL (NORMAL)
[2020-04-24 10:39] LABS: APPEARANCE,URINE SLIGHTLY HAZY (CLEAR); COLOR,URINE YELLOW (YELLOW)
[2020-04-24 10:54] LABS: BACTERIA,URINE TRACE /HPF (NEGATIVE); RBC,URINE 0-2 /HPF (0-3); SQUAMOUS EPITHELIAL CELL,UR RARE /HPF (NEGATIVE)
--- NOTE | 2020-04-24 11:57 | DR.GENAD ---
HPI Time Seen Time Seen by Provider: 04/24/20 07:13 PCP Primary Care Physician: ABDULAZIZ LEAL Complaint/Symptoms Chief Complaint:: PT. HAD GALLBLADDER SURGERY ON SATURDAY PER DR. MOODY. PT. STATES SHE HAD NOT HAD A BOWEL MOVEMENT SINCE SURGERY. PT. STATES SHE HAS BEEN TAKING COLACE AND DULCOLAX LAXATIVES WITH NO RESULTS. PT. C/O NAUSEA. PT. DOES STATE THAT SHE HAS BEEN BELCHING AND PASSING GAS. COVID-19 Coronavirus risk:travel/contact w/high risk person: No Has patient experienced Coronavirus symptoms: No Coronavirus symptoms experienced: Shortness of Breath Nurses notes reviewed Nurses Notes Review: Yes Source History Provided: Patient Mode of Arrival Mode of Arrival: Ambulatory Timing Onset of Chief Complaint: 04/20/20 Came on: Gradually Duration Duration: Constant How lon Duration: Days Location Location: lower abdominal pain Severity Severity: Moderate Modifying Factors Worsens:: nothing Improves:: nothing PMH PMH Past Medical History: Yes Past Medical History: Anxiety, Coronary Artery Disease, Diabetes, Hypertension and Kidney Stones Past Surgical History: Yes Surgical History: Angioplasty/Stents, Cholecystectomy and Hysterectomy Family History History of Family Medical Conditions: Yes Family Medical History: Diabetes Mellitus, Cancer and [place] Social History Does patient currently use any type of tobacco product: No Have you used tobacco products in the last 12 months: No Type of Tobacco Use: None Does any household member use tobacco: No Alcohol Use: None Do you use any recreational Drugs:: No Lives With: Spouse Lives Where: Home Travel Risk Coronavirus risk:travel/contact w/high risk person: No Has patient experienced Coronavirus symptoms: No Coronavirus symptoms experienced: Shortness of Breath Infectious screening In the last 2 months have you had wt loss of >10#?: NO Have you had fever, night sweats or hemotysis?: No Have you traveled outside the country in the last 6 months?: No Isolation: Standard PE Vital Signs Vitals: Temperature 97.8 F Pulse Rate 114 Respiratory Rate 18 Blood Pressure [Right Arm] 119/56 Blood Pressure 132/60 O2 Sat by Pulse Oximetry 98 ROR Labs Reviewed Result Diagrams: 04/24/20 07:30 04/24/20 12:11 Laboratory: WBC 14.9 X10^3/uL (3.6-10.0) H 04/24/20 07:30 RBC 5.55 X10^6/uL (3.5-5.4) H 04/24/20 07:30 Hgb 16.2 g/dL (12.0-16.0) H 04/24/20 07:30 Hct 49.1 % (36.0-47.0) H 04/24/20 07:30 MCV 88.4 fL (80.0-100.0) 04/24/20 07:30 MCH 29.1 pg (27.0-34.0) 04/24/20 07:30 MCHC 33.0 g/dL (33.0-35.0) 04/24/20 07:30 RDW 13.9 % (11.6-16.5) 04/24/20 07:30 Plt Count 336 X10^3/uL (150.0-450.0) 04/24/20 07:30 MPV 9.8 fL (7.4-11.0) 04/24/20 07:30 Neut % (Auto) 76.0 % (42.0-75.0) H 04/24/20 07:30 Lymph % (Auto) 15.6 % (21.0-51.0) L 04/24/20 07:30 Alexander % (Auto) 6.3 % (0.0-13.0) 04/24/20 07:30 Eos % (Auto) 1.7 % (0.9-2.9) 04/24/20 07:30 Baso % (Auto) 0.4 % (0.2-1.0) 04/24/20 07:30 Neut # (Auto) 11.3 x10^3/uL (2.2-4.8) H 04/24/20 07:30 Lymph # (Auto) 2.3 X10^3/uL (1.3-2.9) 04/24/20 07:30 Alexander # (Auto) 0.9 x10^3/uL (0.3-0.8) H 04/24/20 07:30 Eos # (Auto) 0.3 x10^3/uL (0.0-0.2) H 04/24/20 07:30 Baso # (Auto) 0.1 X10^3/uL (0.0-0.1) 04/24/20 07:30 Absolute Nucleated RBC 0.1 /100WBC 04/24/20 07:30 PT 14.3 SECONDS (11.8-14.3) 04/24/20 07:30 INR Target Range - 04/24/20 07:30 INR 1.14 (0.8-1.3) 04/24/20 07:30 APTT 30.8 SECONDS (22.9-36.5) 04/24/20 07:30 PTT Comment - 04/24/20 07:30 Sample Site Lb 04/24/20 09:00 ABG pH 7.210 (7.35-7.45) L 04/24/20 09:00 ABG pCO2 21.0 mmHg (35.0-45.0) L 04/24/20 09:00 ABG pO2 112.0 mmHg (80.0-100.0) H 04/24/20 09:00 ABG HCO3 8.4 mmol/L (22-26) L* 04/24/20 09:00 ABG O2 Saturation 97.0 % (90-100) 04/24/20 09:00 ABG Base Excess -17.5 mmol/L (-2.0-2.0) L 04/24/20 09:00 Bob Test Na 04/24/20 09:00 A-a Gradient 11.0 mmHg 04/24/20 09:00 FiO2 21.0 04/24/20 09:00 Blood Gas Comments Pt [email or web address] [email or web address] 04/24/20 09:00 Sodium 138 mmol/L (136-145) 04/24/20 12:11 Corrected Sodium 139 mmol/L (136-145) 04/24/20 12:11 Potassium 4.8 mmol/L (3.5-5.1) 04/24/20 12:11 Chloride 104 mmol/L (98-107) 04/24/20 12:11 Carbon Dioxide 15.2 mmol/L (21-32) L 04/24/20 12:11 BUN 10 mg/dL (7-18) 04/24/20 12:11 Creatinine 0.75 mg/dL (0.55-1.02) 04/24/20 12:11 Est GFR (MDRD) Af Amer > 60 (>60) 04/24/20 12:11 Est GFR (MDRD) Non-Af > 60 (>60) 04/24/20 12:11 Glucose 156 mg/dL (65-99) H 04/24/20 12:11 Calcium 8.5 mg/dL (8.5-10.1) 04/24/20 12:11 Corrected Calcium TNP 04/24/20 07:30 Magnesium 1.6 mg/dL (1.7-2.9) L 04/24/20 07:30 Total Bilirubin 1.10 mg/dL (0.2-1.0) H 04/24/20 07:30 AST 18 Units/L (15-37) 04/24/20 07:30 ALT 76 Units/L (12-78) 04/24/20 07:30 Alkaline Phosphatase 97 Units/L (46-116) 04/24/20 07:30 Creatine Kinase 15 Units/L (26-192) L 04/24/20 07:30 CK-MB (CK-2) < 1.0 ng/mL (0-4.0) 04/24/20 07:30 CK/CKMB % Calc 6.7 % (<4) 04/24/20 07:30 Troponin I < 0.02 ng/mL (0-1.5) 04/24/20 07:30 Total Protein 8.4 g/dL (6.4-8.2) H 04/24/20 07:30 Albumin 3.9 g/dL (3.4-5.0) 04/24/20 07:30 Globulin 4.5 g/dL (2.5-4.5) 04/24/20 07:30 Albumin/Globulin Ratio 0.9 Ratio (1.1-2.1) L 04/24/20 07:30 Amylase 26 Units/L (25-115) 04/24/20 07:30 Lipase 114 Units/L (73-393) 04/24/20 07:30 Specimen Type Clean catch urine 04/24/20 10:20 Urine Color Yellow (YELLOW) 04/24/20 10:20 Urine Appearance Slightly hazy (CLEAR) 04/24/20 10:20 Urine pH 5.0 (5.0 - 8.0) 04/24/20 10:20 Ur Specific [place] 1.025 (1.000-1.030) 04/24/20 10:20 Urine Protein 2+ (NEGATIVE) 04/24/20 10:20 Urine Glucose (UA) 4+ (NEGATIVE) 04/24/20 10:20 Urine Ketones 4+ (NEGATIVE) 04/24/20 10:20 Urine Occult Blood Negative (NEGATIVE) 04/24/20 10:20 Urine Nitrite Negative (NEGATIVE) 04/24/20 10:20 Urine Bilirubin Negative (NEGATIVE) 04/24/20 10:20 Urine Urobilinogen Normal (NORMAL) 04/24/20 10:20 Ur Leukocyte Esterase Negative (NEGATIVE) 04/24/20 10:20 Urine RBC 0-2 /HPF (0-3) 04/24/20 10:20 Urine WBC 0-2 /HPF (0-5) 04/24/20 10:20 Ur Squamous Epith Cells Rare /HPF (NEGATIVE) 04/24/20 10:20 Urine Bacteria Trace /HPF (NEGATIVE) 04/24/20 10:20 Ur Culture Indicated? No/not indicated 04/24/20 10:20 Acetone, Semi-Quant Small (NEGATIVE) H 04/24/20 12:11 Opioid Opioid Risk Tool Age (Jozef box if 16-45): No History of Preadolescent Sexual Abuse: No Total: 0 Total Score Risk Category: Low Risk Copyright: Go RIVER[employer] predicting aberrant behaviors
[2020-04-24 12:30] LABS: BLOOD UREA NITROGEN 10 mg/dL (7-18); CALCIUM 8.5 mg/dL (8.5-10.1); CARBON DIOXIDE 15.2 mmol/L (21-32); CHLORIDE 104 mmol/L (98-107); COR NA(FOR HYPERGLY) 139 mmol/L (136-145); CREATININE 0.75 mg/dL (0.55-1.02); SODIUM 138 mmol/L (136-145); eGFR NON BLACK RACES > 60 (>60)
[2020-04-24] MEDS ORDERED: FLEET ENEMA ADULT PR ONE (13:52)
[2020-04-24] MEDS ORDERED: DEMEROL INJ IVP ONE (13:58)
[2020-04-24] MEDS ORDERED: ZOFRAN TAB 4 MG SL PRN (15:19)
[2020-04-24] MEDS: ZOFRAN INJ 4 MG VIAL IVP PRN ×2 (15:50→22:34)
[2020-04-24] MEDS ORDERED: DULCOLAX SUPPOSITORY 10 MG RECTAL ONE (16:19)
[2020-04-24] MEDS: PHENERGAN INJ 25 MG IM PRN ×2 (16:25→21:25)
[2020-04-24] MEDS ORDERED: MINERAL OIL RECTAL ONE (16:35)
[2020-04-24 16:51] LABS: ABG BASE EXCESS -22.7 mmol/L (-2.0-2.0)
[2020-04-24 16:51] LABS: BLOOD UREA NITROGEN 10 mg/dL (7-18); CALCIUM 8.9 mg/dL (8.5-10.1); CHLORIDE 104 mmol/L (98-107); COR NA(FOR HYPERGLY) 141 mmol/L (136-145); CREATININE 0.82 mg/dL (0.55-1.02); SODIUM 139 mmol/L (136-145); eGFR NON BLACK RACES > 60 (>60)
[2020-04-24 16:53] LABS: CARBON DIOXIDE 10.8 mmol/L (21-32)
[2020-04-24] MEDS: TORADOL 15 MG VIAL IVP PRN ×2 (17:31→22:30)
[2020-04-24 21:31] LABS: ABG HCO3 < 3.0 mmol/L (22-26)
[2020-04-24] MEDS: D5 1/2 NS 1000 ML 1,000 ML IV SCH (21:50)
[2020-04-24] MEDS: MYXREDLIN 100 UNIT/100 ML BAG 100 UNIT/100 ML PLAST..BAG IV PRN (22:10)
[2020-04-25] MEDS: D5 1/2 NS 1000 ML 1,000 ML IV SCH ×3 (02:36→18:20)
[2020-04-25] MEDS: TORADOL 15 MG VIAL IVP PRN (03:50)
[2020-04-25] MEDS: NS 1000 ML 1,000 ML IV SCH (03:51)
[2020-04-25] MEDS: ZOFRAN INJ 4 MG VIAL IVP PRN (06:44)
[2020-04-25 06:49] LABS: BILIRUBIN,URINE NEGATIVE (NEGATIVE); BLOOD/HEMOGLOBIN,URINE 2+ (NEGATIVE); GLUCOSE, URINE 4+ (NEGATIVE); KETONES,URINE 4+ (NEGATIVE); LEUKOCYTE ESTERASE ,URINE NEGATIVE (NEGATIVE); NITRITES,URINE NEGATIVE (NEGATIVE); PROTEIN,URINE 2+ (NEGATIVE); UROBILINOGEN,URINE NORMAL (NORMAL)
[2020-04-25 06:53] LABS: BASOPHILS # (AUTO) 0.1 X10^3/uL (0.0-0.1); BASOPHILS % (AUTO) 0.3 % (0.2-1.0); HEMATOCRIT 44.3 % (36.0-47.0); HEMOGLOBIN 14.7 g/dL (12.0-16.0); LYMPHOCYTES # (AUTO) 1.9 X10^3/uL (1.3-2.9); LYMPHOCYTES % (AUTO) 11.7 % (21.0-51.0); MEAN CORPUSCULAR HEMOGLOBIN 29.6 pg (27.0-34.0); MEAN CORPUSCULAR HGB CONC 33.1 g/dL (33.0-35.0); MEAN CORPUSCULAR VOLUME 89.4 fL (80.0-100.0); MEAN PLATELET VOLUME 9.7 fL (7.4-11.0); MONOCYTES # (AUTO) 1.1 x10^3/uL (0.3-0.8); MONOCYTES % (AUTO) 6.4 % (0.0-13.0); NEUTROPHILS # (AUTO) 13.6 x10^3/uL (2.2-4.8); NEUTROPHILS % (AUTO) 81.6 % (42.0-75.0); PLATELET COUNT 346 X10^3/uL (150.0-450.0); RED BLOOD COUNT 4.96 X10^6/uL (3.5-5.4); RED CELL DISTRIBUTION WIDTH 14.3 % (11.6-16.5); WHITE BLOOD COUNT 16.6 X10^3/uL (3.6-10.0)
[2020-04-25 06:54] LABS: ALANINE AMINOTRANSFERASE 59 Units/L (12-78); ALBUMIN 3.6 g/dL (3.4-5.0); ALKALINE PHOSPHATASE 93 Units/L (46-116); ASPARTATE AMINO TRANSFERASE 12 Units/L (15-37); BLOOD UREA NITROGEN 11 mg/dL (7-18); CHLORIDE 107 mmol/L (98-107); COR NA(FOR HYPERGLY) 141 mmol/L (136-145); CREATININE 0.92 mg/dL (0.55-1.02); MAGNESIUM 1.8 mg/dL (1.7-2.9); SODIUM 139 mmol/L (136-145); TOTAL PROTEIN 7.8 g/dL (6.4-8.2); eGFR NON BLACK RACES > 60 (>60)
[2020-04-25 06:55] LABS: CARBON DIOXIDE 8.9 mmol/L (21-32)
[2020-04-25 06:58] LABS: ABG BASE EXCESS -19.2 mmol/L (-2.0-2.0)
[2020-04-25 07:00] LABS: ABG HCO3 6.4 mmol/L (22-26)
[2020-04-25 07:15] LABS: APPEARANCE,URINE CLEAR (CLEAR); COLOR,URINE YELLOW (YELLOW)
[2020-04-25 07:16] LABS: RBC,URINE 0-2 /HPF (0-3)
[2020-04-25 07:17] LABS: BACTERIA,URINE TRACE /HPF (NEGATIVE); FINE GRANULAR CASTS,URINE FEW /LPF (NEGATIVE); HYALINE CASTS, URINE FEW /LPF (NEGATIVE); SQUAMOUS EPITHELIAL CELL,UR FEW /HPF (NEGATIVE)
[2020-04-25 08:39] VITALS: BMI 26.7
[2020-04-25] MEDS ORDERED: OFIRMEV IV 1000 MG VIAL 1,000 MG/100 ML VIAL IV PRN (09:10)
[2020-04-25 10:17] LABS: BLOOD UREA NITROGEN 10 mg/dL (7-18); CALCIUM 9.4 mg/dL (8.5-10.1); CHLORIDE 106 mmol/L (98-107); COR NA(FOR HYPERGLY) 141 mmol/L (136-145); CREATININE 0.87 mg/dL (0.55-1.02); SODIUM 139 mmol/L (136-145); eGFR NON BLACK RACES > 60 (>60)
[2020-04-25 10:20] LABS: CARBON DIOXIDE 10.4 mmol/L (21-32)
[2020-04-25] MEDS: ZOSYN VIAL 3.375 GRAMS 3.375 G in NS 100 ML IV + SPIKE MINIBAG* 100 ML IV SCH ×3 (10:22→21:01)
[2020-04-25] MEDS: TOPROL XL PO SCH (10:22)
--- NOTE | 2020-04-25 10:52 | RAD ---
HISTORYILEUS Relevant Clinical [id number]/20/2020Janee toussaint right upper quadrant and mid abdomen. Non obstructive bowel gas pattern. No suggestion of organomegaly or free air. No acute osseous finding.IM PRESSIONNonobstructive bowel gas pattern.Electronically signed by: Jonah Ng (Apr 25, 2020 10:51: 05)
[2020-04-25] MEDS: PROTONIX INJ 40 MG VIAL IVP SCH ×2 (11:06→20:59)
[2020-04-25 14:33] LABS: BLOOD UREA NITROGEN 8 mg/dL (7-18); CALCIUM 8.8 mg/dL (8.5-10.1); CHLORIDE 104 mmol/L (98-107); COR NA(FOR HYPERGLY) 140 mmol/L (136-145); CREATININE 0.89 mg/dL (0.55-1.02); SODIUM 138 mmol/L (136-145); eGFR NON BLACK RACES > 60 (>60)
[2020-04-25 14:36] LABS: CARBON DIOXIDE 14.3 mmol/L (21-32)
--- NOTE | 2020-04-25 15:29 | DR.PROGNOT ---
Hospital Progress Notes - Progress Note for Day of: Progress Note Date: 04/25/20 - Chief Complaint Chief Complaint: more comfortable today . mild nausea , no vomiting. less back pain. moderate costipation . - Past Medical Family Social History Past Med/Fam/Surg Hx: No changes since H&P Allergies: Allergies clopidogrel [From Plavix] Allergy (Verified 04/20/20 08:20) Sulfa (Sulfonamide Antibiotics) [SULFA] Allergy (Verified 01/04/20 10:05) - Review Of Systems ROS: No change since H&P - Vital Signs Vital Signs: Temperature 98.9 F Pulse Rate [Left Brachial] 101 Pulse Rate 114 Respiratory Rate 19 Blood Pressure [Right Arm] 112/55 Blood Pressure 132/60 O2 Sat by Pulse Oximetry 97 - Physical Exam Oriented: Normal Eyes: Normal, Diplopia Ear: Normal Nose: Normal Throat: Normal, Tonsillar Hypertrophy Respiratory: Right GI:Palpation: Normal GI: Tenderness: Diffuse (mild diffuse tenderness , BS+..healing incisions , no active infection ) Speech Pattern: Clear, Appropriate - Laboratory and Diagnostics Result Diagrams: 04/25/20 05:35 04/25/20 14:13 Labs: 04/24/20 18:25 Urine,Clean Catch Urine Culture - Preliminary Laboratory WBC 16.6 X10^3/uL (3.6-10.0) H 04/25/20 05:35 RBC 4.96 X10^6/uL (3.5-5.4) 04/25/20 05:35 Hgb 14.7 g/dL (12.0-16.0) 04/25/20 05:35 Hct 44.3 % (36.0-47.0) 04/25/20 05:35 MCV 89.4 fL (80.0-100.0) 04/25/20 05:35 MCH 29.6 pg (27.0-34.0) 04/25/20 05:35 MCHC 33.1 g/dL (33.0-35.0) 04/25/20 05:35 RDW 14.3 % (11.6-16.5) 04/25/20 05:35 Plt Count 346 X10^3/uL (150.0-450.0) 04/25/20 05:35 MPV 9.7 fL (7.4-11.0) 04/25/20 05:35 Neut % (Auto) 81.6 % (42.0-75.0) H 04/25/20 05:35 Lymph % (Auto) 11.7 % (21.0-51.0) L 04/25/20 05:35 [place] % (Auto) 6.4 % (0.0-13.0) 04/25/20 05:35 Eos % (Auto) 0.0 % (0.9-2.9) L 04/25/20 05:35 Baso % (Auto) 0.3 % (0.2-1.0) 04/25/20 05:35 Neut # (Auto) 13.6 x10^3/uL (2.2-4.8) H 04/25/20 05:35 Lymph # (Auto) 1.9 X10^3/uL (1.3-2.9) 04/25/20 05:35 [place] # (Auto) 1.1 x10^3/uL (0.3-0.8) H 04/25/20 05:35 Eos # (Auto) 0.0 x10^3/uL (0.0-0.2) 04/25/20 05:35 Baso # (Auto) 0.1 X10^3/uL (0.0-0.1) 04/25/20 05:35 Absolute Nucleated RBC 0.0 /100WBC 04/25/20 05:35 PT 15.9 SECONDS (11.8-14.3) 04/25/20 05:35 INR Target Range - 04/25/20 05:35 INR 1.31 (0.8-1.3) H 04/25/20 05:35 APTT 30.8 SECONDS (22.9-36.5) 04/24/20 07:30 PTT Comment - 04/24/20 07:30 Sample Site Lb 04/25/20 06:00 ABG pH 7.210 (7.35-7.45) L 04/25/20 06:00 ABG pCO2 16.0 mmHg (35.0-45.0) L* 04/25/20 06:00 ABG pO2 107.0 mmHg (80.0-100.0) H 04/25/20 06:00 ABG HCO3 6.4 mmol/L (22-26) L* 04/25/20 06:00 ABG O2 Saturation 97.0 % (90-100) 04/25/20 06:00 ABG Base Excess -19.2 mmol/L (-2.0-2.0) L 04/25/20 06:00 Bob Test Na 04/25/20 06:00 A-a Gradient 23.0 mmHg 04/25/20 06:00 FiO2 21.0 04/25/20 06:00 Blood Gas Comments Pt augusto well cdn 04/25/20 06:00 Sodium 138 mmol/L (136-145) 04/25/20 14:13 Corrected Sodium 140 mmol/L (136-145) 04/25/20 14:13 Potassium 3.6 mmol/L (3.5-5.1) 04/25/20 14:13 Chloride 104 mmol/L (98-107) 04/25/20 14:13 Carbon Dioxide 14.3 mmol/L (21-32) L* 04/25/20 14:13 BUN 8 mg/dL (7-18) 04/25/20 14:13 Creatinine 0.89 mg/dL (0.55-1.02) 04/25/20 14:13 Est GFR (MDRD) Af Amer > 60 (>60) 04/25/20 14:13 Est GFR (MDRD) Non-Af > 60 (>60) 04/25/20 14:13 Glucose 180 mg/dL (65-99) H 04/25/20 14:13 POC Glucose (mg/dL) 152 mg/dL (65-99) H 04/25/20 15:16 Hemoglobin A1c 9.3 % 04/24/20 07:30 Lactic Acid 1.3 mmol/L (0.4-2.0) 04/24/20 18:12 Calcium 8.8 mg/dL (8.5-10.1) 04/25/20 14:13 Corrected Calcium TNP 04/25/20 05:35 Magnesium 1.8 mg/dL (1.7-2.9) 04/25/20 05:35 Total Bilirubin 0.70 mg/dL (0.2-1.0) 04/25/20 05:35 AST 12 Units/L (15-37) L 04/25/20 05:35 ALT 59 Units/L (12-78) 04/25/20 05:35 Alkaline Phosphatase 93 Units/L (46-116) 04/25/20 05:35 Creatine Kinase 15 Units/L (26-192) L 04/24/20 07:30 CK-MB (CK-2) < 1.0 ng/mL (0-4.0) 04/24/20 07:30 CK/CKMB % Calc 6.7 % (<4) 04/24/20 07:30 Troponin I < 0.02 ng/mL (0-1.5) 04/24/20 07:30 Total Protein 7.8 g/dL (6.4-8.2) 04/25/20 05:35 Albumin 3.6 g/dL (3.4-5.0) 04/25/20 05:35 Globulin 4.2 g/dL (2.5-4.5) 04/25/20 05:35 Albumin/Globulin Ratio 0.9 Ratio (1.1-2.1) L 04/25/20 05:35 Amylase 26 Units/L (25-115) 04/24/20 07:30 Lipase 114 Units/L (73-393) 04/24/20 07:30 Specimen Type Clean catch urine 04/25/20 06:30 Urine Color Yellow (YELLOW) 04/25/20 06:30 Urine Appearance Clear (CLEAR) 04/25/20 06:30 Urine pH 5.0 (5.0 - 8.0) 04/25/20 06:30 Ur Specific [place] 1.020 (1.000-1.030) 04/25/20 06:30 Urine Protein 2+ (NEGATIVE) 04/25/20 06:30 Urine Glucose (UA) 4+ (NEGATIVE) 04/25/20 06:30 Urine Ketones 4+ (NEGATIVE) 04/25/20 06:30 Urine Occult Blood 2+ (NEGATIVE) 04/25/20 06:30 Urine Nitrite Negative (NEGATIVE) 04/25/20 06:30 Urine Bilirubin Negative (NEGATIVE) 04/25/20 06:30 Urine Urobilinogen Normal (NORMAL) 04/25/20 06:30 Ur Leukocyte Esterase Negative (NEGATIVE) 04/25/20 06:30 Urine RBC 0-2 /HPF (0-3) 04/25/20 06:30 Urine WBC 0-2 /HPF (0-5) 04/25/20 06:30 Ur Squamous Epith Cells Few /HPF (NEGATIVE) 04/25/20 06:30 Urine Bacteria Trace /HPF (NEGATIVE) 04/25/20 06:30 Hyaline Casts Few /LPF (NEGATIVE) 04/25/20 06:30 Fine Granular Casts Few /LPF (NEGATIVE) 04/25/20 06:30 Ur Culture Indicated? No/not indicated 04/25/20 06:30 Acetone, Semi-Quant Small (NEGATIVE) H 04/25/20 05:35 SARS CoV-2 RNA Rapid SARAH Negative (NEGATIVE) 04/24/20 16:45 - Assessment and Plan 1: s/p lap jocelyn with constipation . no intra abdominal; complications . Keto acidoses , dehydration and mild Wt loss .. advanced diet , OOB ambulatory. to follow as out Pt - Problem Patient Problems: Patient Problems DKA (diabetic ketoacidoses) (Acute) E11.10 Constipation (Acute) K59.00
--- NOTE | 2020-04-25 17:52 | DR.H&P ---
H&P - History & Physical for Day of: H&P Date: 04/24/20 - Chief Complaint Chief Complaint: abdominal pain, n/v/c - History of Present Illness History of Present Illness: PT. HAD GALLBLADDER SURGERY ON SATURDAY PER DR. MOODY. PT. STATES SHE HAD NOT HAD A BOWEL MOVEMENT SINCE SURGERY. PT. STATES SHE HAS BEEN TAKING COLACE AND DULCOLAX LAXATIVES WITH NO RESULTS. PT. C/O NAUSEA. PT. DOES STATE THAT SHE HAS BEEN BELCHING AND PASSING GAS. - Past Medical History Past Medical History: Coronary Artery Disease, Hypertension, Diabetes, Anxiety, Kidney Stones - Past Surgical History Surgical History: Cholecystectomy, Hysterectomy - Family History Family Medical History: Diabetes Mellitus, Coronary Artery Disease, Hypertension - Social History Does patient currently use any type of tobacco product: No Have you used tobacco products in the last 12 months: No Type of Tobacco Use: None Does any household member use tobacco: No Alcohol Use: None Drug Use: None - Medications Home Medications: clopidogrel [From Plavix] Allergy (Verified 04/20/20 08:20) Sulfa (Sulfonamide Antibiotics) [SULFA] Allergy (Verified 01/04/20 10:05) CONTINUE taking the following medications dapagliflozin [Farxiga] 10 mg PO DAILY 04/25/20 [History] hydrocodone-acetaminophen 1 tab PO QID PRN 04/25/20 [History] ondansetron HCl 4 mg PO Q8H PRN 04/25/20 [History] - Review of Systems Constitutional: Weakness, Malaise Eyes: No Symptoms Reported ENT: No Symptoms Reported Respiratory: No Symptoms Reported Cardiovascular: No Symptoms Reported Gastrointestinal: Nausea, Vomiting, Abdominal Pain, Constipation Genitourinary: No Symptoms Reported Musculoskeletal: No Symptoms Reported Skin: No Symptoms Reported Neurological: No Symptoms Reported - Physical Exam Vital Signs: Temperature 97.7 F Pulse Rate [Left Brachial] 93 Pulse Rate 114 Respiratory Rate 18 Blood Pressure [Right Arm] 110/53 Blood Pressure 132/60 O2 Sat by Pulse Oximetry 97 Oriented: Normal Eyes: Normal Ear: Normal Nose: Normal Throat: Normal Respiratory: Clear Throughout Cardiovascular: Normal : Normal Auscultation: Bowel Sounds: Normal Palpation: Other (SOFT) Tenderness: Diffuse Skin: Normal, Wound (LAP МАРИНА INCISIONS WITHOUT REDNESS, DC OR INCREASED WARMTH) Musculoskeletal: Normal Psychiatric: Anxiety Affect: Anxious Speech Pattern: Clear, Appropriate - Assessment/Plan (1) Postoperative ileus Status: Acute Plan: ADMIT, NPO. CT ABD PELVIS IN ER, GENTLE IV HYDRATION. BS CONTROL, CONSULT DR MOODY. VERIFY HOME MEDICATIONS,IV ATBX, UA CU. BC, SERUM ACETONE (2) DKA (diabetic ketoacidoses) Status: Acute (3) Constipation Status: Acute - Allergies Allergies/Adverse Reactions: Allergies Allergy/AdvReac Type Severity Reaction Status Date / Time clopidogrel [From Plavix] Allergy Verified 04/20/20 08:20 Sulfa (Sulfonamide Allergy Verified 01/04/20 10:05 Antibiotics) [SULFA]
[2020-04-25 18:46] LABS: BLOOD UREA NITROGEN 8 mg/dL (7-18); CALCIUM 8.8 mg/dL (8.5-10.1); CARBON DIOXIDE 17.1 mmol/L (21-32); CHLORIDE 103 mmol/L (98-107); COR NA(FOR HYPERGLY) 140 mmol/L (136-145); CREATININE 0.88 mg/dL (0.55-1.02); SODIUM 138 mmol/L (136-145); eGFR NON BLACK RACES > 60 (>60)
[2020-04-25 22:28] LABS: BLOOD UREA NITROGEN 7 mg/dL (7-18); CALCIUM 8.9 mg/dL (8.5-10.1); CARBON DIOXIDE 18.9 mmol/L (21-32); CHLORIDE 105 mmol/L (98-107); COR NA(FOR HYPERGLY) 141 mmol/L (136-145); CREATININE 0.95 mg/dL (0.55-1.02); SODIUM 139 mmol/L (136-145); eGFR NON BLACK RACES > 60 (>60)
[2020-04-25] MEDS ORDERED: POTASSIUM CHL 60 MEQ/NS 0.45% 500 ML IV PRN (22:51)
[2020-04-25] MEDS ORDERED: KLOR-CON PO PRN (22:51)
[2020-04-25] MEDS ORDERED: MICRO K EXTEN CAP 10 MEQ PO PRN (22:51)
[2020-04-25] MEDS ORDERED: POTASSIUM CHLORIDE LIQ 20 MEQ UDC PO PRN (22:51)
[2020-04-25] MEDS ORDERED: MAGNESIUM SULFATE 1 GRAM/100 mL PREMIX 1 GM/100 ML BAG IV PRN (22:51)
[2020-04-25] MEDS ORDERED: POTASSIUM CHL 40 MEQ/NS 0.45% 500 ML IV PRN (22:51)
[2020-04-25] MEDS ORDERED: K-RIDER 10 MEQ/NS 100 ML 10 MEQ/100 ML BAG IV PRN (22:51)
[2020-04-25] MEDS: K-DUR TAB 20 MEQ PO PRN (23:30)
[2020-04-26] MEDS: MYXREDLIN 100 UNIT/100 ML BAG 100 UNIT/100 ML PLAST..BAG IV PRN ×2 (02:47→02:48)
[2020-04-26] MEDS: D5 1/2 NS 1000 ML 1,000 ML IV SCH ×3 (02:47→18:18)
[2020-04-26] MEDS: K-DUR TAB 20 MEQ PO PRN ×2 (03:30→09:04)
[2020-04-26 05:07] LABS: ABG ALLEN TEST POS; ABG BASE EXCESS -4.1 mmol/L (-2.0-2.0); ABG HCO3 19.8 mmol/L (22-26)
[2020-04-26] MEDS: ZOSYN VIAL 3.375 GRAMS 3.375 G in NS 100 ML IV + SPIKE MINIBAG* 100 ML IV SCH ×3 (05:20→21:08)
[2020-04-26 06:42] LABS: BASOPHILS # (AUTO) 0.1 X10^3/uL (0.0-0.1); BASOPHILS % (AUTO) 0.9 % (0.2-1.0); EOSINOPHILS # (AUTO) 0.4 x10^3/uL (0.0-0.2); EOSINOPHILS % (AUTO) 4.2 % (0.9-2.9); HEMATOCRIT 38.9 % (36.0-47.0); LYMPHOCYTES # (AUTO) 2.9 X10^3/uL (1.3-2.9); LYMPHOCYTES % (AUTO) 31.4 % (21.0-51.0); MEAN CORPUSCULAR HEMOGLOBIN 28.8 pg (27.0-34.0); MEAN CORPUSCULAR HGB CONC 33.3 g/dL (33.0-35.0); MEAN CORPUSCULAR VOLUME 86.3 fL (80.0-100.0); MEAN PLATELET VOLUME 9.3 fL (7.4-11.0); MONOCYTES # (AUTO) 0.8 x10^3/uL (0.3-0.8); MONOCYTES % (AUTO) 9.1 % (0.0-13.0); NEUTROPHILS % (AUTO) 54.4 % (42.0-75.0); PLATELET COUNT 274 X10^3/uL (150.0-450.0); RED BLOOD COUNT 4.51 X10^6/uL (3.5-5.4); RED CELL DISTRIBUTION WIDTH 14.1 % (11.6-16.5); WHITE BLOOD COUNT 9.1 X10^3/uL (3.6-10.0)
[2020-04-26 06:56] LABS: ALANINE AMINOTRANSFERASE 35 Units/L (12-78); ALBUMIN 2.9 g/dL (3.4-5.0); ALKALINE PHOSPHATASE 69 Units/L (46-116); ASPARTATE AMINO TRANSFERASE 12 Units/L (15-37); BLOOD UREA NITROGEN 6 mg/dL (7-18); CALCIUM 8.7 mg/dL (8.5-10.1); CARBON DIOXIDE 19.5 mmol/L (21-32); CHLORIDE 108 mmol/L (98-107); COR CA(FOR HYPOALB) 9.6 mg/dL (8.5-10.1); COR NA(FOR HYPERGLY) 140 mmol/L (136-145); SODIUM 139 mmol/L (136-145); TOTAL PROTEIN 6.2 g/dL (6.4-8.2); eGFR NON BLACK RACES > 60 (>60)
[2020-04-26 07:16] LABS: ABG BASE EXCESS -5.1 mmol/L (-2.0-2.0); ABG HCO3 18.6 mmol/L (22-26)
[2020-04-26] MEDS: PROTONIX INJ 40 MG VIAL IVP SCH ×2 (09:03→20:05)
[2020-04-26] MEDS: TOPROL XL PO SCH (09:07)
[2020-04-26] MEDS: LEVEMIR SC SCH (09:36)
[2020-04-26] MEDS: HumuLIN R SUBCUT PRN ×3 (11:24→20:08)
[2020-04-26] MEDS ORDERED: SNACK - Diabetic Appropriate PO SCH (20:00)
[2020-04-27] MEDS: D5 1/2 NS 1000 ML 1,000 ML IV SCH ×2 (05:11→12:30)
[2020-04-27] MEDS: ZOSYN VIAL 3.375 GRAMS 3.375 G in NS 100 ML IV + SPIKE MINIBAG* 100 ML IV SCH ×2 (05:35→13:37)
[2020-04-27] MEDS: HumuLIN R SUBCUT PRN ×3 (06:00→16:55)
[2020-04-27 06:18] LABS: BASOPHILS # (AUTO) 0.1 X10^3/uL (0.0-0.1); EOSINOPHILS # (AUTO) 0.4 x10^3/uL (0.0-0.2); EOSINOPHILS % (AUTO) 6.3 % (0.9-2.9); HEMATOCRIT 37.5 % (36.0-47.0); HEMOGLOBIN 12.9 g/dL (12.0-16.0); LYMPHOCYTES # (AUTO) 2.4 X10^3/uL (1.3-2.9); LYMPHOCYTES % (AUTO) 36.5 % (21.0-51.0); MEAN CORPUSCULAR HEMOGLOBIN 29.2 pg (27.0-34.0); MEAN CORPUSCULAR HGB CONC 34.2 g/dL (33.0-35.0); MEAN CORPUSCULAR VOLUME 85.1 fL (80.0-100.0); MEAN PLATELET VOLUME 9.1 fL (7.4-11.0); MONOCYTES # (AUTO) 0.6 x10^3/uL (0.3-0.8); MONOCYTES % (AUTO) 9.5 % (0.0-13.0); NEUTROPHILS % (AUTO) 46.7 % (42.0-75.0); PLATELET COUNT 254 X10^3/uL (150.0-450.0); RED BLOOD COUNT 4.41 X10^6/uL (3.5-5.4); WHITE BLOOD COUNT 6.5 X10^3/uL (3.6-10.0)
[2020-04-27 06:39] LABS: SERUM ACETONE NEGATIVE (NEGATIVE)
[2020-04-27 06:42] LABS: ALANINE AMINOTRANSFERASE 29 Units/L (12-78); ALBUMIN 2.8 g/dL (3.4-5.0); ALKALINE PHOSPHATASE 67 Units/L (46-116); ASPARTATE AMINO TRANSFERASE 12 Units/L (15-37); BLOOD UREA NITROGEN 7 mg/dL (7-18); CALCIUM 8.7 mg/dL (8.5-10.1); CARBON DIOXIDE 24.2 mmol/L (21-32); CHLORIDE 106 mmol/L (98-107); COR CA(FOR HYPOALB) 9.7 mg/dL (8.5-10.1); COR NA(FOR HYPERGLY) 144 mmol/L (136-145); CREATININE 0.47 mg/dL (0.55-1.02); SODIUM 141 mmol/L (136-145); eGFR NON BLACK RACES > 60 (>60)
[2020-04-27] MEDS: LEVEMIR SC SCH (08:28)
[2020-04-27] MEDS: TOPROL XL PO SCH (08:34)
[2020-04-27] MEDS: PROTONIX INJ 40 MG VIAL IVP SCH (08:34)
[2020-04-27] MEDS: K-DUR TAB 20 MEQ PO PRN (13:35)
[2020-04-27 15:50] VITALS: BP 119/59
== END 2020-04-27 17:20 | disposition home or self-care (01) | DRG 638 ==
LOC: ER 07:03 → MED/SURG 07:03 → OBSVTOIN 13:47 → MED/SURG 13:58
PROVIDERS: ADMIT Internal Medicine; ATTEND Internal Medicine

== ENCOUNTER 2024-03-24 05:52 | Observation (INO) ==
--- NOTE | 2024-03-24 06:13 | DR.NAUSEAF ---
HPI <BACILIO ALVARADO - Last Filed: 03/24/24 09:18> Time Seen Time Seen by Provider: 03/24/24 06:13 Primary Care Physician Primary Care Physician: Dr. Morel/ Annette Tavarez - ABDUALZIZ Martin [facility] Comment HPI Comment: History as above. Complaints Chief Complaint Doctors Comments: Patient is 59yr old female in ER complaining of nausea, vomiting, diarrhea abd abdominal discomfort since Saturday. Patient has being having elevated glucose and elevated heart rate also. She is weak and fatigue. Chief Complaint:: Patient ambulatory in er wiht complaints of nausea, vomiting, diarrhea, weakness, elevated heart rate, and elevated blood sugar x3 days. Pt states family members have experienced similar symptoms. pt denies pain or fever. no s/s distress noted. COVID-19 Coronavirus risk:travel/contact w/high risk person: No Has patient experienced Coronavirus symptoms: No Reviewed Nurses Notes Reviewed: Yes Source History Provided: Patient Mode of Arrival Mode of Arrival: Ambulatory Timing Onset of Chief Complaint: 03/21/24 PMH <BACILIO ALVARADO - Last Filed: 03/24/24 09:18> PMH Past Medical History: Yes Past Medical History: Anxiety, Arthritis, Coronary Artery Disease, Diabetes, Kidney Stones and [place] Past Medical History Comment: Lupus, Fibromyalgia, Sjogren's Past Surgical History: Yes Surgical History: Cholecystectomy and Hysterectomy Past Surgical History Comment: Cardiac stents x1 Family History History of Family Medical Conditions: Yes Family Medical History: Diabetes Mellitus, Coronary Artery Disease and Hypertension Social History Does patient currently use any type of tobacco product: No Have you used tobacco products in the last 12 months: No Type of Tobacco Use: None Does any household member use tobacco: No Alcohol Use: None Do you use any recreational Drugs:: No Lives With: Spouse Lives Where: Home Travel Risk Coronavirus risk:travel/contact w/high risk person: No Has patient experienced Coronavirus symptoms: No Infectious screening Have you traveled outside the country in the last 6 months?: No Isolation: Standard PE <BACILIO ALVARADO - Last Filed: 03/24/24 09:18> Vital Signs Vitals: Vital Signs Temperature 97.8 F Pulse Rate [Right] 92 Pulse Rate 106 Respiratory Rate 14 Respiratory Rate 18 Blood Pressure [Right Arm] 129/60 Blood Pressure 115/56 O2 Sat by Pulse Oximetry 98 O2 Sat by Pulse Oximetry 97 <Benjamin Larios - Last Filed: 03/24/24 13:11> Vital Signs Vitals: Vital Signs Temperature 97.8 F Pulse Rate [Right] 92 Pulse Rate 106 Respiratory Rate 14 Respiratory Rate 18 Blood Pressure [Right Arm] 129/60 Blood Pressure 115/56 O2 Sat by Pulse Oximetry 98 O2 Sat by Pulse Oximetry 97 ROR <BACILIO ALVARADO - Last Filed: 03/24/24 09:18> Labs Reviewed 03/24/24 06:30 03/24/24 06:30 Laboratory: WBC 20.3 X10^3/uL (3.6-10.0) H 03/24/24 06:30 RBC 5.24 X10^6/uL (3.5-5.4) 03/24/24 06:30 Hgb 15.1 g/dL (12.0-16.0) 03/24/24 06:30 Hct 45.4 % (36.0-47.0) 03/24/24 06:30 MCV 86.8 fL (80.0-100.0) 03/24/24 06:30 MCH 28.9 pg (27.0-34.0) 03/24/24 06:30 MCHC 33.3 g/dL (33.0-35.0) 03/24/24 06:30 RDW 14.6 % (11.6-16.5) 03/24/24 06:30 Plt Count 232 X10^3/uL (150.0-450.0) 03/24/24 06:30 MPV 9.4 fL (7.4-11.0) 03/24/24 06:30 Neut % (Auto) 89.8 % (42.0-75.0) H 03/24/24 06:30 Lymph % (Auto) 3.5 % (21.0-51.0) L 03/24/24 06:30 [place] % (Auto) 5.7 % (0.0-13.0) 03/24/24 06:30 Eos % (Auto) 0.7 % (0.9-2.9) L 03/24/24 06:30 Baso % (Auto) 0.3 % (0.2-1.0) 03/24/24 06:30 Neut # (Auto) 18.2 x10^3/uL (2.2-4.8) H 03/24/24 06:30 Lymph # (Auto) 0.7 X10^3/uL (1.3-2.9) L 03/24/24 06:30 [place] # (Auto) 1.2 x10^3/uL (0.3-0.8) H 03/24/24 06:30 Eos # (Auto) 0.1 x10^3/uL (0.0-0.2) 03/24/24 06:30 Baso # (Auto) 0.1 X10^3/uL (0.0-0.1) 03/24/24 06:30 Absolute Nucleated RBC 0.0 /100WBC 03/24/24 06:30 Sodium 144 mmol/L (136-145) 03/24/24 06:30 Corrected Sodium 147 mmol/L (136-145) H 03/24/24 06:30 Potassium 3.9 mmol/L (3.5-5.1) 03/24/24 06:30 Chloride 105 mmol/L (98-107) 03/24/24 06:30 Carbon Dioxide 28.0 mmol/L (21-32) 03/24/24 06:30 BUN 13 mg/dL (7-18) 03/24/24 06:30 Creatinine 0.85 mg/dL (0.55-1.02) 03/24/24 06:30 Est GFR (MDRD) Af Amer > 60 (>60) 03/24/24 06:30 Est GFR (MDRD) Non-Af > 60 (>60) 03/24/24 06:30 Glucose 233 mg/dL (65-99) H 03/24/24 06:30 Lactic Acid 1.7 mmol/L (0.4-2.0) 03/24/24 08:58 Calcium 8.9 mg/dL (8.5-10.1) 03/24/24 06:30 Corrected Calcium TNP 03/24/24 06:30 Magnesium 1.3 mg/dL (2.0-2.9) L 03/24/24 06:27 Total Bilirubin 0.50 mg/dL (0.2-1.0) 03/24/24 06:30 AST 13 Units/L (15-37) L 03/24/24 06:30 ALT 8 Units/L (12-78) L 03/24/24 06:30 Alkaline Phosphatase 78 Units/L (46-116) 03/24/24 06:30 Total Protein 7.3 g/dL (6.4-8.2) 03/24/24 06:30 Albumin 3.8 g/dL (3.4-5.0) 03/24/24 06:30 Globulin 3.5 g/dL (2.5-4.5) 03/24/24 06:30 Albumin/Globulin Ratio 1.1 Ratio (1.1-2.1) 03/24/24 06:30 Acetone, Semi-Quant Negative (NEGATIVE) 03/24/24 06:30 <Benjamin Larios - Last Filed: 03/24/24 13:11> Labs Reviewed Laboratory: WBC 20.3 X10^3/uL (3.6-10.0) H 03/24/24 06:30 RBC 5.24 X10^6/uL (3.5-5.4) 03/24/24 06:30 Hgb 15.1 g/dL (12.0-16.0) 03/24/24 06:30 Hct 45.4 % (36.0-47.0) 03/24/24 06:30 MCV 86.8 fL (80.0-100.0) 03/24/24 06:30 MCH 28.9 pg (27.0-34.0) 03/24/24 06:30 MCHC 33.3 g/dL (33.0-35.0) 03/24/24 06:30 RDW 14.6 % (11.6-16.5) 03/24/24 06:30 Plt Count 232 X10^3/uL (150.0-450.0) 03/24/24 06:30 MPV 9.4 fL (7.4-11.0) 03/24/24 06:30 Neut % (Auto) 89.8 % (42.0-75.0) H 03/24/24 06:30 Lymph % (Auto) 3.5 % (21.0-51.0) L 03/24/24 06:30 [place] % (Auto) 5.7 % (0.0-13.0) 03/24/24 06:30 Eos % (Auto) 0.7 % (0.9-2.9) L 03/24/24 06:30 Baso % (Auto) 0.3 % (0.2-1.0) 03/24/24 06:30 Neut # (Auto) 18.2 x10^3/uL (2.2-4.8) H 03/24/24 06:30 Lymph # (Auto) 0.7 X10^3/uL (1.3-2.9) L 03/24/24 06:30 [place] # (Auto) 1.2 x10^3/uL (0.3-0.8) H 03/24/24 06:30 Eos # (Auto) 0.1 x10^3/uL (0.0-0.2) 03/24/24 06:30 Baso # (Auto) 0.1 X10^3/uL (0.0-0.1) 03/24/24 06:30 Absolute Nucleated RBC 0.0 /100WBC 03/24/24 06:30 Sodium 144 mmol/L (136-145) 03/24/24 06:30 Corrected Sodium 147 mmol/L (136-145) H 03/24/24 06:30 Potassium 3.9 mmol/L (3.5-5.1) 03/24/24 06:30 Chloride 105 mmol/L (98-107) 03/24/24 06:30 Carbon Dioxide 28.0 mmol/L (21-32) 03/24/24 06:30 BUN 13 mg/dL (7-18) 03/24/24 06:30 Creatinine 0.85 mg/dL (0.55-1.02) 03/24/24 06:30 Est GFR (MDRD) Af Amer > 60 (>60) 03/24/24 06:30 Est GFR (MDRD) Non-Af > 60 (>60) 03/24/24 06:30 Glucose 233 mg/dL (65-99) H 03/24/24 06:30 Lactic Acid 1.7 mmol/L (0.4-2.0) 03/24/24 08:58 Calcium 8.9 mg/dL (8.5-10.1) 03/24/24 06:30 Corrected Calcium TNP 03/24/24 06:30 Magnesium 1.3 mg/dL (2.0-2.9) L 03/24/24 06:27 Total Bilirubin 0.50 mg/dL (0.2-1.0) 03/24/24 06:30 AST 13 Units/L (15-37) L 03/24/24 06:30 ALT 8 Units/L (12-78) L 03/24/24 06:30 Alkaline Phosphatase 78 Units/L (46-116) 03/24/24 06:30 Total Protein 7.3 g/dL (6.4-8.2) 03/24/24 06:30 Albumin 3.8 g/dL (3.4-5.0) 03/24/24 06:30 Globulin 3.5 g/dL (2.5-4.5) 03/24/24 06:30 Albumin/Globulin Ratio 1.1 Ratio (1.1-2.1) 03/24/24 06:30 Acetone, Semi-Quant Negative (NEGATIVE) 03/24/24 06:30 Opioid <BACILIO ALVARADO - Last Filed: 03/24/24 09:18> Opioid Risk Tool Age (Jozef box if 16-45): No History of Preadolescent Sexual Abuse: No Total: 0 Total Score Risk Category: Low Risk Copyright: [employer] predicting aberrant behaviors <Benjamin Larios - Last Filed: 03/24/24 13:11> Opioid Risk Tool Total: 0 Total Score Risk Category: Low Risk Discharge Plan Discharge Plan Patient Disposition: ADMITTED INPATIENT Condition: Stable
[2024-03-24] MEDS ORDERED: NS 1,000 ML IV 1,000 ML ONE (06:26)
[2024-03-24] MEDS: ZOFRAN INJ 4 MG VIAL IVP ONE (06:29)
[2024-03-24] MEDS: NS 1,000 ML IV 1,000 ML IV ONE (06:29)
[2024-03-24 06:44] LABS: BASOPHILS # (AUTO) 0.1 X10^3/uL (0.0-0.1); BASOPHILS % (AUTO) 0.3 % (0.2-1.0); EOSINOPHILS # (AUTO) 0.1 x10^3/uL (0.0-0.2); EOSINOPHILS % (AUTO) 0.7 % (0.9-2.9); HEMATOCRIT 45.4 % (36.0-47.0); HEMOGLOBIN 15.1 g/dL (12.0-16.0); LYMPHOCYTES # (AUTO) 0.7 X10^3/uL (1.3-2.9); LYMPHOCYTES % (AUTO) 3.5 % (21.0-51.0); MEAN CORPUSCULAR HEMOGLOBIN 28.9 pg (27.0-34.0); MEAN CORPUSCULAR HGB CONC 33.3 g/dL (33.0-35.0); MEAN CORPUSCULAR VOLUME 86.8 fL (80.0-100.0); MEAN PLATELET VOLUME 9.4 fL (7.4-11.0); MONOCYTES # (AUTO) 1.2 x10^3/uL (0.3-0.8); MONOCYTES % (AUTO) 5.7 % (0.0-13.0); NEUTROPHILS # (AUTO) 18.2 x10^3/uL (2.2-4.8); NEUTROPHILS % (AUTO) 89.8 % (42.0-75.0); PLATELET COUNT 232 X10^3/uL (150.0-450.0); RED BLOOD COUNT 5.24 X10^6/uL (3.5-5.4); RED CELL DISTRIBUTION WIDTH 14.6 % (11.6-16.5); WHITE BLOOD COUNT 20.3 X10^3/uL (3.6-10.0)
[2024-03-24 06:58] LABS: ALANINE AMINOTRANSFERASE 8 Units/L (12-78); ALBUMIN 3.8 g/dL (3.4-5.0); ALKALINE PHOSPHATASE 78 Units/L (46-116); ASPARTATE AMINO TRANSFERASE 13 Units/L (15-37); BLOOD UREA NITROGEN 13 mg/dL (7-18); CALCIUM 8.9 mg/dL (8.5-10.1); CHLORIDE 105 mmol/L (98-107); COR NA(FOR HYPERGLY) 147 mmol/L (136-145); CREATININE 0.85 mg/dL (0.55-1.02); GLUCOSE 233 mg/dL (65-99); POTASSIUM 3.9 mmol/L (3.5-5.1); SODIUM 144 mmol/L (136-145); TOTAL PROTEIN 7.3 g/dL (6.4-8.2); eGFR NON BLACK RACES > 60 (>60)
--- NOTE | 2024-03-24 07:06 | CT ---
EXAM:CT abdomen pelvis without contrastHISTORY:Nausea, vomiting common diarrhea, weaknessTECHNIQUE:Axial noncontrast images with coronal and sagittal reformats. Dose reduction procedures were used with mA/kv adjusted for body size. This examination is limited due to the lack of intravenous and oral contrast. The examination was performed in this non unenhanced manner at the SOLE direction of the ordering caregiver and without input from radiology.COMPARISON:04/24/2020FINDINGS: Lung bases are clear. Liver, spleen, adrenal glands, and pancreas are within normal limits but only to the limitations of an unenhanced examination. Patient is status post cholecystectomy. Kidneys are unobstructed and without stones. No ureteral calculi are identified. Appendix is not identified with absolute certainty. There are no secondary signs of appendicitis present. Mild calcific atherosclerotic changes present in the nondilated abdominal aorta. No abnormal retroperitoneal or intraperitoneal lymphadenopathy identified. There are no definite findings suggestive of enteritis, colitis, or diverticulitis. No pelvic masses, pelvic fluid, or pelvic lymphadenopathy is identified. No bladder abnormality is identified. No lytic or blastic skeletal lesions of significance identified.IMPRESSION:No significant acute abnormality identified within the abdomen or pelvis but only to the limitations of an examination performed without intravenous and without oral contrast.THIS IS AN ELECTRONICALLY VERIFIED FINAL [id number] 7:02 AM - Electronically signed by Adam Douglas MD
[2024-03-24] MEDS: TORADOL 60 MG VIAL IM ONE (07:49)
[2024-03-24] MEDS: NORFLEX INJ IM ONE (07:49)
[2024-03-24] MEDS: CONSULT PHARMACY - POTASSIUM & MAGNESIUM XX SCH (08:42)
[2024-03-24] MEDS: MAGNESIUM SULFATE 1 GRAM/100 mL PREMIX 1 G/100 ML BAG IV SCH (08:53)
[2024-03-24] MEDS: CIPRO IV 400 MG PREMIX* 400 MG/200 ML IV.SOLN. IV ONE (09:09)
[2024-03-24] MEDS: NS 1,000 ML IV 1,000 ML IV SCH (09:11)
[2024-03-24] MEDS ORDERED: NS 1,000 ML IV 1,000 ML with MAGNESIUM SULFATE 50% INJ VIAL 1 G IV ONE (09:12)
[2024-03-24] MEDS ORDERED: NS 1,000 ML IV 1,000 ML with MAGNESIUM SULFATE 50% INJ VIAL 1 G IV SCH (10:00)
[2024-03-24] MEDS ORDERED: CONSULT PHARMACY - POTASSIUM & MAGNESIUM XX SCH (10:00)
[2024-03-24] MEDS: MOTRIN TAB 800 MG PO PRN (10:29)
[2024-03-24] MEDS: NS 1,000 ML IV 1,000 ML with MAGNESIUM SULFATE 50% INJ VIAL 1 G IV SCH (10:29)
[2024-03-24 10:48] LABS: BILIRUBIN,URINE NEGATIVE (NEGATIVE); BLOOD/HEMOGLOBIN,URINE NEGATIVE (NEGATIVE); GLUCOSE, URINE 4+ (NEGATIVE); KETONES,URINE NEGATIVE (NEGATIVE); LEUKOCYTE ESTERASE ,URINE NEGATIVE (NEGATIVE); NITRITES,URINE NEGATIVE (NEGATIVE); PROTEIN,URINE 1+ (NEGATIVE); UROBILINOGEN,URINE NORMAL (NORMAL)
[2024-03-24 11:19] VITALS: BMI 30.5
[2024-03-24 11:42] LABS: APPEARANCE,URINE SLIGHTLY HAZY (CLEAR); COLOR,URINE YELLOW (YELLOW)
[2024-03-24 11:43] LABS: BACTERIA,URINE TRACE /HPF (NEGATIVE); HYALINE CASTS, URINE FEW /LPF (NEGATIVE); RBC,URINE 0-2 /HPF (0-3); SQUAMOUS EPITHELIAL CELL,UR FEW /HPF (NEGATIVE)
[2024-03-24] MEDS: ZOFRAN INJ 4 MG VIAL ONE (12:50)
--- NOTE | 2024-03-24 18:00 | DR.H&P ---
H&P History & Physical for Day of: H&P Date: 03/24/24 Chief Complaint Chief Complaint: NVD, WEAKNESS History of Present Illness History of Present Illness: PT IS 59 WF, ER ADMISSION WITH ACUTE GI SYMPTOMS ON SATURDAY. PTS SPOUSE AND OTHER FAMILY MEMBERS HAVE BEEN SICK WITH STOMACH VIRUS. PT REPORTS ABDOMINAL CRAMPS. PT HAS TYPE 2 DM AND DENIES ANY FEVER OR UPPER RESPIRATORY SYMPTOMS. PT ADMITTED FOR TREATMENT AND EVALUATION OF ACUTE ILLNESS. Past Medical History Past Medical History: Anxiety, Coronary Artery Disease, Diabetes, Hypertension and Kidney Stones Past Surgical History Surgical History: Angioplasty/Stents, Cholecystectomy, Hysterectomy, Ortho Surgery and Other Family History Family Medical History: Diabetes Mellitus, [place], Coronary Artery Disease and Hypertension Social History Does patient currently use any type of tobacco product: No Have you used tobacco products in the last 12 months: No Type of Tobacco Use: None Does any household member use tobacco: No Alcohol Use: None Drug Use: None Medications Home Medications: Home Medications Medication Instructions Recorded Confirmed Type metoprolol succinate 25 mg 12.5 mg PO DAILY 01/05/20 03/24/24 History tablet,extended release 24 hr amitriptyline 10 mg tablet 10 mg PO QPM 03/12/24 03/24/24 History dapagliflozin propanediol 10 mg 10 mg PO DAILY 03/12/24 03/24/24 History tablet diazepam 5 mg tablet 5 mg PO QDAY 03/12/24 03/24/24 History hydroxychloroquine 200 mg tablet 200 mg PO BID 03/12/24 03/24/24 History insulin degludec 200 unit/mL (3 100 unit subcut DAILY 03/12/24 03/24/24 History mL) subcutaneous pen (Tresiba FlexTouch U-200 insulin) metformin 500 mg tablet 500 mg PO BID 03/12/24 03/24/24 History omeprazole 40 mg capsule,delayed 40 mg PO QDAY 03/12/24 03/24/24 History release semaglutide 0.25 mg or 0.5 mg (2 0.5 mg subcut WEEKLY 03/12/24 03/24/24 History mg/3 mL) subcutaneous pen injector (Ozempic) dicyclomine 20 mg tablet 20 mg PO BID 03/24/24 03/24/24 History Allergies Allergies Allergy/AdvReac Type Severity Reaction Status Date / Time clopidogrel [From Plavix] Allergy Unknown Verified 03/24/24 06:12 Sulfa (Sulfonamide Allergy Unknown Verified 03/24/24 06:12 Antibiotics) [SULFA] sulfamethoxazole Allergy Unknown Verified 03/24/24 06:12 latex Allergy Verified 03/24/24 06:12 Labs 03/24/24 06:30 03/24/24 06:30 Labs: Laboratory WBC 20.3 X10^3/uL (3.6-10.0) H 03/24/24 06:30 RBC 5.24 X10^6/uL (3.5-5.4) 03/24/24 06:30 Hgb 15.1 g/dL (12.0-16.0) 03/24/24 06:30 Hct 45.4 % (36.0-47.0) 03/24/24 06:30 MCV 86.8 fL (80.0-100.0) 03/24/24 06:30 MCH 28.9 pg (27.0-34.0) 03/24/24 06:30 MCHC 33.3 g/dL (33.0-35.0) 03/24/24 06:30 RDW 14.6 % (11.6-16.5) 03/24/24 06:30 Plt Count 232 X10^3/uL (150.0-450.0) 03/24/24 06:30 MPV 9.4 fL (7.4-11.0) 03/24/24 06:30 Neut % (Auto) 89.8 % (42.0-75.0) H 03/24/24 06:30 Lymph % (Auto) 3.5 % (21.0-51.0) L 03/24/24 06:30 [place] % (Auto) 5.7 % (0.0-13.0) 03/24/24 06:30 Eos % (Auto) 0.7 % (0.9-2.9) L 03/24/24 06:30 Baso % (Auto) 0.3 % (0.2-1.0) 03/24/24 06:30 Neut # (Auto) 18.2 x10^3/uL (2.2-4.8) H 03/24/24 06:30 Lymph # (Auto) 0.7 X10^3/uL (1.3-2.9) L 03/24/24 06:30 [place] # (Auto) 1.2 x10^3/uL (0.3-0.8) H 03/24/24 06:30 Eos # (Auto) 0.1 x10^3/uL (0.0-0.2) 03/24/24 06:30 Baso # (Auto) 0.1 X10^3/uL (0.0-0.1) 03/24/24 06:30 Absolute Nucleated RBC 0.0 /100WBC 03/24/24 06:30 Sodium 144 mmol/L (136-145) 03/24/24 06:30 Corrected Sodium 147 mmol/L (136-145) H 03/24/24 06:30 Potassium 3.9 mmol/L (3.5-5.1) 03/24/24 06:30 Chloride 105 mmol/L (98-107) 03/24/24 06:30 Carbon Dioxide 28.0 mmol/L (21-32) 03/24/24 06:30 BUN 13 mg/dL (7-18) 03/24/24 06:30 Creatinine 0.85 mg/dL (0.55-1.02) 03/24/24 06:30 Est GFR (MDRD) Af Amer > 60 (>60) 03/24/24 06:30 Est GFR (MDRD) Non-Af > 60 (>60) 03/24/24 06:30 Glucose 233 mg/dL (65-99) H 03/24/24 06:30 Lactic Acid 1.7 mmol/L (0.4-2.0) 03/24/24 08:58 Calcium 8.9 mg/dL (8.5-10.1) 03/24/24 06:30 Corrected Calcium TNP 03/24/24 06:30 Magnesium 1.3 mg/dL (2.0-2.9) L 03/24/24 06:27 Total Bilirubin 0.50 mg/dL (0.2-1.0) 03/24/24 06:30 AST 13 Units/L (15-37) L 03/24/24 06:30 ALT 8 Units/L (12-78) L 03/24/24 06:30 Alkaline Phosphatase 78 Units/L (46-116) 03/24/24 06:30 Total Protein 7.3 g/dL (6.4-8.2) 03/24/24 06:30 Albumin 3.8 g/dL (3.4-5.0) 03/24/24 06:30 Globulin 3.5 g/dL (2.5-4.5) 03/24/24 06:30 Albumin/Globulin Ratio 1.1 Ratio (1.1-2.1) 03/24/24 06:30 Specimen Type Clean catch urine 03/24/24 10:15 Urine Color Yellow (YELLOW) 03/24/24 10:15 Urine Appearance Slightly hazy (CLEAR) 03/24/24 10:15 Urine pH 6.0 (5.0 - 8.0) 03/24/24 10:15 Ur Specific [place] 1.020 (1.000-1.030) 03/24/24 10:15 Urine Protein 1+ (NEGATIVE) 03/24/24 10:15 Urine Glucose (UA) 4+ (NEGATIVE) 03/24/24 10:15 Urine Ketones Negative (NEGATIVE) 03/24/24 10:15 Urine Blood Negative (NEGATIVE) 03/24/24 10:15 Urine Nitrite Negative (NEGATIVE) 03/24/24 10:15 Urine Bilirubin Negative (NEGATIVE) 03/24/24 10:15 Urine Urobilinogen Normal (NORMAL) 03/24/24 10:15 Ur Leukocyte Esterase Negative (NEGATIVE) 03/24/24 10:15 Urine RBC 0-2 /HPF (0-3) 03/24/24 10:15 Urine WBC 0-2 /HPF (0-5) 03/24/24 10:15 Ur Squamous Epith Cells Few /HPF (NEGATIVE) 03/24/24 10:15 Urine Bacteria Trace /HPF (NEGATIVE) 03/24/24 10:15 Hyaline Casts Few /LPF (NEGATIVE) 03/24/24 10:15 Urine Mucus Few /HPF (NEGATIVE) 03/24/24 10:15 Ur Culture Indicated? Yes/culture set up 03/24/24 10:15 Acetone, Semi-Quant Negative (NEGATIVE) 03/24/24 06:30 Review of Systems Constitutional: Weakness Eyes: No Symptoms Reported ENT: No Symptoms Reported Respiratory: No Symptoms Reported Cardiovascular: No Symptoms Reported Gastrointestinal: Nausea, Vomiting and Diarrhea Genitourinary: No Symptoms Reported Musculoskeletal: Back Pain Skin: No Symptoms Reported Neurological: No Symptoms Reported Physical Exam Vital Signs: Vital Signs Temperature 98.2 F Temperature 98.1 F Temperature 98.2 F Pulse Rate [Right] 76 Pulse Rate [Right] 90 Pulse Rate [Right] 95 Respiratory Rate 18 Respiratory Rate 18 Respiratory Rate 17 Respiratory Rate 16 Respiratory Rate 21 Blood Pressure [Right Arm] 109/52 Blood Pressure [Right Arm] 125/71 Blood Pressure [Right Arm] 123/65 O2 Sat by Pulse Oximetry 97 O2 Sat by Pulse Oximetry 98 O2 Sat by Pulse Oximetry 96 Oriented: Normal Eyes: Normal Ear: Normal Nose: Normal Respiratory: Clear Throughout Cardiovascular: Normal : Normal Auscultation: Bowel Sounds: Increased Palpation: Normal Tenderness: Epigastric Skin: Normal Musculoskeletal: Normal Mood Description: Calm Affect: Normal Speech Pattern: Clear and Appropriate Assessment/Plan (1) Gastroenteritis: Status: Acute Plan: ADMIT, IV HYDRATION BS CONTROL, CT ABD/PELVIS DONE IN ER IV CIPRO, BP CONTROL PAIN AND NAUSEA CONTROL (2) Type 2 diabetes mellitus: Status: None (3) Dehydration: Status: Acute
[2024-03-24] MEDS: CIPRO IV 400 MG PREMIX* 400 MG/200 ML IV.SOLN. IV SCH (20:38)
[2024-03-24] MEDS ORDERED: NovoLIN R (or HumuLIN R) SUBCUT PRN (21:33)
[2024-03-24] MEDS: ZOFRAN INJ 4 MG VIAL IVP PRN (23:35)
[2024-03-25 05:56] LABS: BASOPHILS % (AUTO) 0.4 % (0.2-1.0); EOSINOPHILS # (AUTO) 0.4 x10^3/uL (0.0-0.2); EOSINOPHILS % (AUTO) 5.7 % (0.9-2.9); HEMATOCRIT 35.9 % (36.0-47.0); HEMOGLOBIN 12.4 g/dL (12.0-16.0); LYMPHOCYTES # (AUTO) 1.7 X10^3/uL (1.3-2.9); MEAN CORPUSCULAR HEMOGLOBIN 29.7 pg (27.0-34.0); MEAN CORPUSCULAR HGB CONC 34.4 g/dL (33.0-35.0); MEAN CORPUSCULAR VOLUME 86.5 fL (80.0-100.0); MEAN PLATELET VOLUME 9.5 fL (7.4-11.0); MONOCYTES # (AUTO) 0.6 x10^3/uL (0.3-0.8); MONOCYTES % (AUTO) 8.4 % (0.0-13.0); NEUTROPHILS # (AUTO) 4.4 x10^3/uL (2.2-4.8); NEUTROPHILS % (AUTO) 61.5 % (42.0-75.0); PLATELET COUNT 184 X10^3/uL (150.0-450.0); RED BLOOD COUNT 4.16 X10^6/uL (3.5-5.4); RED CELL DISTRIBUTION WIDTH 14.3 % (11.6-16.5)
[2024-03-25 06:02] LABS: WHITE BLOOD COUNT 7.2 X10^3/uL (3.6-10.0)
[2024-03-25 06:15] LABS: ALANINE AMINOTRANSFERASE < 6 Units/L (12-78); ALKALINE PHOSPHATASE 58 Units/L (46-116); ASPARTATE AMINO TRANSFERASE 12 Units/L (15-37); BLOOD UREA NITROGEN 5 mg/dL (7-18); CARBON DIOXIDE 27.9 mmol/L (21-32); CHLORIDE 111 mmol/L (98-107); COR CA(FOR HYPOALB) 8.8 mg/dL (8.5-10.1); COR NA(FOR HYPERGLY) 146 mmol/L (136-145); CREATININE 0.55 mg/dL (0.55-1.02); GLUCOSE 130 mg/dL (65-99); POTASSIUM 3.6 mmol/L (3.5-5.1); SODIUM 145 mmol/L (136-145); TOTAL PROTEIN 5.7 g/dL (6.4-8.2); eGFR NON BLACK RACES > 60 (>60)
[2024-03-25] MEDS ORDERED: CONSULT PHARMACY - POTASSIUM & MAGNESIUM XX SCH (08:00)
[2024-03-25] MEDS: K-DUR TAB 20 MEQ PO SCH (08:40)
[2024-03-25 10:12] VITALS: RESP 19
[2024-03-25 12:48] VITALS: BP 113/56; PULSE 74; TEMP 97.5; O2SAT 94
[2024-03-25] MEDS ORDERED: MAG-OX TAB PO SCH (17:00)
[2024-03-25] MEDS ORDERED: SNACK - Diabetic Appropriate PO SCH (20:00)
== END 2024-03-25 13:50 | disposition home or self-care (01) ==
LOC: ER 05:52 → MED/SURG 05:52
PROVIDERS: ADMIT Internal Medicine; ATTEND Internal Medicine
DX: R11.2 Nausea with vomiting, unspecified; D72.828 Other elevated white blood cell count; R19.7 Diarrhea, unspecified; E87.0 Hyperosmolality and hypernatremia; Z79.4 Long term (current) use of insulin; K52.89 Other specified noninfective gastroenteritis and colitis; F41.8 Other specified anxiety disorders; E83.42 Hypomagnesemia; E11.65 Type 2 diabetes mellitus with hyperglycemia; E86.0 Dehydration; R53.1 Weakness